=== PATIENT | male | born 1950 | race Caucasian/White ===

== ENCOUNTER 2019-07-10 12:19 | Day surgery (SDC) | payer OTHER ==
[~2019-07-10] VITALS: Ht 170.2 cm; Wt 115.5 kg
[~2019-07-10 12:19] MED LIST: ALBU90OI INH; Arthritis Pain650 M1 PO; Aspirin EC81 MG PO; B-121000 MC2 PO; ENBREL MIN50 MG/1 ML SC; IBU600 MG PO; IBUPROFEN; LOSA50 PO; METO50ER PO; METTREX2.5; OMEPRAZOLE20 MG PO; OXYACE5T PO; Oxybutynin Chlo10 MG PO; PRED10 PO; PREG300 PO; SILD50TA PO; STIOLTO RESPIMAT4 GM INH; Simvastatin10 MG PO; TAMS.4ER PO; VICODIN; VITAMIN D34000 UNIT PO; [UNRECOGNIZED DRUG - REMARK]
--- NOTE | 2019-07-10 14:02 | NUR ---
07/10/19 1402 Meg Sadler BOTH SURGEON & ANESTHESIOLOGIST NOTIFIED OF PATIENT'S NPO STATUS; PT LAST DRINK OF WATER WAS APPROX 1230.
== END 2019-07-10 15:16 | disposition home or self-care (01) ==
LOC: ORSCSDS 12:19
PROVIDERS: Internal Medicine Gastroenterology
PROC: 0DBP8ZX Excision of Rectum, Via Natural or Artificial Opening Endoscopic, Diagnostic (ICD-10-PCS; principal; 2019-07-10 14:00)
PROC: 0DB58ZX Excision of Esophagus, Via Natural or Artificial Opening Endoscopic, Diagnostic (ICD-10-PCS; principal; 2019-07-10 14:00)
PROC: 0DBN8ZX Excision of Sigmoid Colon, Via Natural or Artificial Opening Endoscopic, Diagnostic (ICD-10-PCS; principal; 2019-07-10 14:00)
PROC: 0DB68ZX Excision of Stomach, Via Natural or Artificial Opening Endoscopic, Diagnostic (ICD-10-PCS; principal; 2019-07-10 14:00)
PROC: 0DBK8ZX Excision of Ascending Colon, Via Natural or Artificial Opening Endoscopic, Diagnostic (ICD-10-PCS; principal; 2019-07-10 14:00)
DX: Z12.11 Encounter for screening for malignant neoplasm of colon (principal); Z86.010 Personal history of colon polyps; K57.30 Diverticulosis of large intestine without perforation or abscess without bleeding; K22.70 Barrett's esophagus without dysplasia; Z80.0 Family history of malignant neoplasm of digestive organs; D12.2 Benign neoplasm of ascending colon; D12.5 Benign neoplasm of sigmoid colon; D12.8 Benign neoplasm of rectum; E66.01 Morbid (severe) obesity due to excess calories; Z68.41 Body mass index [BMI] 40.0-44.9, adult; Z87.891 Personal history of nicotine dependence; Z79.899 Other long term (current) drug therapy
CPT/HCPCS: 87081; 88305; 88342; J2250; J2704; J7120

== ENCOUNTER 2020-05-10 09:53 | Inpatient (IN) | payer OTHER ==
[~2020-05-10] VITALS: Ht 172.7 cm; Wt 120.0 kg
[~2020-05-10 09:53] MED LIST changes: -B-121000 MC2 PO; +B-121000 MC3 PO; +VITAMIN D31000 UNI1 PO; -VITAMIN D34000 UNIT PO
[2020-05-10 11:13] LABS: PO2 Arterial 60.9 mmHg (80-100); pH Blood Arterial 7.44 (7.35-7.45)
[2020-05-10 11:16] LABS: Troponin I 0.019 ng/mL (0.000-0.040)
[2020-05-10 11:17] LABS: Alanine Aminotransfer (ALT/SGP 28 U/L (12-78); Albumin, Blood 3.6 g/dL (3.4-5.0); Alk Phos 63 U/L (50-136); Anion Gap 5 mmol/L (6-16); Aspartate Aminotrans (AST/SGOT 54 U/L (12-37); Bilirubin, Total 0.9 mg/dL (0.1-1.0); Blood Urea Nitrogen 18 mg/dL (8-24); Bun/Creatinine Ratio 18.3 (12.0-20.0); CO2, Blood 29 mmol/L (21-32); Calcium, Blood 8.2 mg/dL (8.5-10.1); Chloride, Blood 103 mmol/L (98-108); Creatinine, Blood 0.99 mg/dL (0.60-1.20); Globulin, Blood 3.5 g/dL (2.2-4.0); Glomerular Filtration Rate >60 (60-); Glucose, Blood 108 mg/dL (70-99); Potassium, Blood 4.7 mmol/L (3.5-5.5); Sodium, Blood 137 mmol/L (136-145); Total Protein, Blood 7.1 g/dL (6.4-8.2)
[2020-05-10 11:36] LABS: BASOPHILS ABSOLUTE AUTO 0.03 K/mm3 (0.00-0.23); BASOPHILS PERCENT AUTO 0 % (0-2); EOSINOPHILS ABSOLUTE AUTO 0.04 K/mm3 (0.00-0.68); EOSINOPHILS PERCENT AUTO 0 % (0-6); Hemoglobin 14.7 g/dL (13.5-17.5); IMMATURE GRAN ABSOLUTE AUTO 0.03 K/mm3 (0.00-0.10); IMMATURE GRAN PERCENT AUTO 0 % (0-1); LYMPHOCYTES ABSOLUTE AUTO 0.76 K/mm3 (0.84-5.20); LYMPHOCYTES PERCENT AUTO 7 % (21-46); MONOCYTES ABSOLUTE AUTO 1.13 K/mm3 (0.16-1.47); MONOCYTES PERCENT AUTO 10 % (4-13); Mean Corpuscular HGB 30.7 pg (26.0-34.0); Mean Corpuscular HGB Conc 32.7 g/dL (31.5-36.5); Mean Corpuscular Volume 94 fL (80-100); Mean Platelet Volume 11.3 fL (9.1-12.4); NEUTROPHILS ABSOLUTE AUTO 9.78 K/mm3 (1.96-9.15); NEUTROPHILS PERCENT AUTO 83 % (41-73); Platelet Count 157 K/mm3 (150-400); RDW Coefficient Variation 13.9 % (11.7-14.2); RDW Standard Deviation 48.7 fL (35.1-46.3); Red Blood Cell Count 4.79 M/mm3 (4.30-5.90); White Blood Cell Count 11.77 K/mm3 (4.00-11.30)
[2020-05-10] MEDS ORDERED: AMIT10 PO (13:01)
[2020-05-10] MEDS ORDERED: TRELEGY ELLIPT1 EACH INH (13:01)
[2020-05-10] MEDS ORDERED: HUMIRA40 MG/0.2 SC (13:02)
[2020-05-10] MEDS ORDERED: POTCHL20ER PO (13:02)
[2020-05-10] MEDS ORDERED: FURO40 PO (13:03)
--- NOTE | 2020-05-10 17:22 | NUR ---
PT PLEASANT SINCE ADMIT. A/O. DENIES PAIN. RUNNING 2ND OF 2 BOLUS' DUE. PT IS QUITE TALKATIVE. LUNGS WHEEZY T/O. ON 2L O2 AND RESP EASY UNLABORED. 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 NO NEW CONCERNS AT THIS TIME. BED IN LOW POSITION, CALL LITGE IN REACH, CALLS APPROP
--- NOTE | 2020-05-11 02:25 | NUR ---
PT VOICED WANTING HARESH HOSE REMOVED, NURSE EXPLAINED THE REASON FOR THE HARESH HOSE, BUT STILL WANTED THEM OFF. TEDS REMOVED AT THIS TIME. PT WAS ENCOURAGED TO HAVE THEM REAPPLIED LATER. CALL LIGHT IN REACH.
--- NOTE | 2020-05-11 03:07 | NUR ---
SHIFT SUMMARY HAS BEEN RESTING QUIETLY WITH FEW INTERRUPTIONS THIS SHIFT. VS TAKEN EARLIER, O2 SATS IN 80'S, O2 PER NC INCREASED TO 4L/MIN, EFFECIVE, SATS REMAIN IN THE 90'S. HOB ELEVATED FOR COMFORT. INSISTED THAT HIS HARESH HOSE BE REMOVED EARLIER, EVEN THOUGH HE WAS INFORMED THEIR RATIONALE. WILL ENCOURAGE THEIR REAPPLIANCE LATER. NO NOTED ACUTE DISTRESS OTHERWISE. CALL LIGHT IN REACH
[2020-05-11 05:05] LABS: BASOPHILS ABSOLUTE AUTO 0.03 K/mm3 (0.00-0.23); BASOPHILS PERCENT AUTO 0 % (0-2); EOSINOPHILS PERCENT AUTO 0 % (0-6); Hematocrit 42.5 % (37.0-53.0); Hemoglobin 13.6 g/dL (13.5-17.5); IMMATURE GRAN ABSOLUTE AUTO 0.15 K/mm3 (0.00-0.10); IMMATURE GRAN PERCENT AUTO 1 % (0-1); LYMPHOCYTES ABSOLUTE AUTO 0.71 K/mm3 (0.84-5.20); LYMPHOCYTES PERCENT AUTO 4 % (21-46); MONOCYTES ABSOLUTE AUTO 0.63 K/mm3 (0.16-1.47); MONOCYTES PERCENT AUTO 4 % (4-13); Mean Corpuscular HGB 30.5 pg (26.0-34.0); Mean Corpuscular Volume 95 fL (80-100); Mean Platelet Volume 11.5 fL (9.1-12.4); NEUTROPHILS ABSOLUTE AUTO 14.71 K/mm3 (1.96-9.15); NEUTROPHILS PERCENT AUTO 91 % (41-73); Platelet Count 158 K/mm3 (150-400); RDW Coefficient Variation 14.6 % (11.7-14.2); RDW Standard Deviation 51.4 fL (35.1-46.3); Red Blood Cell Count 4.46 M/mm3 (4.30-5.90); White Blood Cell Count 16.23 K/mm3 (4.00-11.30)
[2020-05-11 05:23] LABS: Anion Gap 5 mmol/L (6-16); Blood Urea Nitrogen 19 mg/dL (8-24); Bun/Creatinine Ratio 19.2 (12.0-20.0); CO2, Blood 29 mmol/L (21-32); Calcium, Blood 8.7 mg/dL (8.5-10.1); Chloride, Blood 107 mmol/L (98-108); Creatinine, Blood 0.99 mg/dL (0.60-1.20); Glomerular Filtration Rate >60 (60-); Glucose, Blood 195 mg/dL (70-99); Potassium, Blood 3.9 mmol/L (3.5-5.5); Sodium, Blood 141 mmol/L (136-145)
--- NOTE | 2020-05-11 17:37 | NUR ---
SHIFT SUMMARY DECLINED OUT OF BED TO CHAIR AND PERSONAL CARE, SHOWER AND ORAL CARE OFFERED. REFUSED TO WEAR TEDS. DANGLED AT LUNCH.
--- NOTE | 2020-05-12 03:33 | NUR ---
SHIFT SUMMARY HAS BEEN RESTING QUIETLY WITH FEW INTERRUPTIONS SINCE HS. RESPS DIMINISHED, BUT LESS CONGESTED THAN NOTED 24 HR AGO. O2 PER NC. UP TO BATHROOM AD TOLU, VOICED ANNOYANCE RE DEVICES AND SUGGESTIONS FOR SAFETY DUE TO HIS POSSIBLE FALL RISK IF HE GETS SOB. CALL LIGHT IN REACH. NO NOTED ACUTE DISTRESS AT THIS TIME.
--- NOTE | 2020-05-12 23:56 | NUR ---
HAS BEEN UP IN CHAIR WATCHING TV, NO NOTED DISTRESS, BREATRH SOUNDS ALTHOUGH DIMINISHED, ARE LESS CONGESTED THAN NOTED 24 HR AGO PER AUSCULTATION. CALL LIGHT IN REACH
--- NOTE | 2020-05-13 03:00 | NUR ---
SHIFT SUMMARY HAS BEEN RESTING QUIETLY WITH FEW INTERRUPTIONS THIS SHIFT. CALL LIGHT IN REACH.
[2020-05-13 04:48] LABS: Base Excess Venous 7.1 mmol/L; Bicarbonate Venous 30.2 mmol/L (24.0-30.0); PCO2 Venous 42.5 mmHg (38-42); PO2 Venous 118 mmHg (38-42); pH Blood Venous 7.47 (7.34-7.37)
[2020-05-13 05:26] LABS: BASOPHILS ABSOLUTE AUTO 0.03 K/mm3 (0.00-0.23); BASOPHILS PERCENT AUTO 0 % (0-2); EOSINOPHILS PERCENT AUTO 0 % (0-6); Hematocrit 42.6 % (37.0-53.0); Hemoglobin 13.4 g/dL (13.5-17.5); IMMATURE GRAN ABSOLUTE AUTO 0.24 K/mm3 (0.00-0.10); IMMATURE GRAN PERCENT AUTO 2 % (0-1); LYMPHOCYTES ABSOLUTE AUTO 1.24 K/mm3 (0.84-5.20); LYMPHOCYTES PERCENT AUTO 8 % (21-46); MONOCYTES ABSOLUTE AUTO 0.94 K/mm3 (0.16-1.47); MONOCYTES PERCENT AUTO 6 % (4-13); Mean Corpuscular HGB 30.7 pg (26.0-34.0); Mean Corpuscular HGB Conc 31.5 g/dL (31.5-36.5); Mean Corpuscular Volume 98 fL (80-100); Mean Platelet Volume 11.7 fL (9.1-12.4); NEUTROPHILS ABSOLUTE AUTO 12.91 K/mm3 (1.96-9.15); NEUTROPHILS PERCENT AUTO 84 % (41-73); Platelet Count 196 K/mm3 (150-400); RDW Coefficient Variation 15.1 % (11.7-14.2); RDW Standard Deviation 54.6 fL (35.1-46.3); Red Blood Cell Count 4.37 M/mm3 (4.30-5.90); White Blood Cell Count 15.36 K/mm3 (4.00-11.30)
[2020-05-13 05:38] LABS: Anion Gap 4 mmol/L (6-16); Blood Urea Nitrogen 25 mg/dL (8-24); Bun/Creatinine Ratio 26.1 (12.0-20.0); CO2, Blood 30 mmol/L (21-32); Calcium, Blood 8.8 mg/dL (8.5-10.1); Chloride, Blood 107 mmol/L (98-108); Creatinine, Blood 0.96 mg/dL (0.60-1.20); Glomerular Filtration Rate >60 (60-); Glucose, Blood 148 mg/dL (70-99); Potassium, Blood 4.7 mmol/L (3.5-5.5); Sodium, Blood 141 mmol/L (136-145)
--- NOTE | 2020-05-13 16:33 | NUR ---
NO ACUTE CHANGES T/O SHIFT, A&OX4. PT IS CURRENTLY ON 2 L/MIN 02 VIA NC WITH WHEEZING NOTED IN THE LUNGS. RT TRIED WINGING PT OFF OF O2 BECAUSE PT IS ROOM AIR AT BASELINE. PT DROPPED TO 89% SATURATION AND WAS PLACED BACK ON 2 L/MIN O2. POSSIBLE DISCHARGE TOMORROW.
--- NOTE | 2020-05-13 17:29 | NUR ---
DISCUSSED WITH LACEY THE PT'S SLIGHTLY ELEVATED BP LEVEL, STATED HE IS NOT TOO CONCERNED CURRENTLY AND HE WILL TAKE A LOOK AT HOW IT IS DOING TOMORROW.
--- NOTE | 2020-05-14 05:29 | NUR ---
SHIFT SUMMARY NO ACUTE CHANGES THIS SHIFT. PT IS A&O X4, IND IN ROOM, CALLS APPROPRIATELY. PT STATES HE IS EXCITED TO POSSBILY BE GOING HOME TODAY. NO COMPLAINTS OF ANY KIND. PT IS LAYING IN BED WITH EYES CLOSED, EVEN AND UNLABORED RESPIRATIONS. BED IN LOWERED POSITION WITH HOB ELEVATED. CALL LIGHT AND PERSONAL ITEMS WITHIN REACH. NO APPARENT NEEDS OR DISTRESS AT THIS TIME, WILL CONTINUE TO MONITOR UNTIL REPORT GIVEN TO DAY RN.
[2020-05-14] MEDS ORDERED: GUAI600T33 PO (11:45)
[2020-05-14] MEDS ORDERED: CEFU500T30 PO (11:49)
[2020-05-14] MEDS ORDERED: PRED20 PO (11:52)
[2020-05-14] MEDS ORDERED: PROBIOTIC PO (11:55)
--- NOTE | 2020-05-14 13:12 | NUR ---
PT DC'D @ APPROX 1300 TODAY BY EVLEIN WITH NURSE. PT WAS PICKED UO BY FRIENDS. BELONGINGS AND DC PAPERS WITH PT. IV REMOVED AND WNL WITH NO SIGN OF INFECTION OR ABNORMALITIES.
== END 2020-05-14 12:58 | disposition home or self-care (01) | DRG 193 ==
LOC: ER 09:53 → ERHOLD 13:17 → MEDS 13:17
PROVIDERS: Emergency Medicine; Internal Medicine; Nurse Practitioner Acute Care; ADMIT Internal Medicine
DX: J18.9 Pneumonia, unspecified organism (principal); J96.01 Acute respiratory failure with hypoxia; J96.02 Acute respiratory failure with hypercapnia; I50.32 Chronic diastolic (congestive) heart failure; J44.1 Chronic obstructive pulmonary disease with (acute) exacerbation; J44.0 Chronic obstructive pulmonary disease with (acute) lower respiratory infection; Z68.41 Body mass index [BMI] 40.0-44.9, adult; Z20.828 Contact with and (suspected) exposure to other viral communicable diseases; I11.0 Hypertensive heart disease with heart failure; E66.01 Morbid (severe) obesity due to excess calories; K21.9 Gastro-esophageal reflux disease without esophagitis; M06.9 Rheumatoid arthritis, unspecified; N40.0 Benign prostatic hyperplasia without lower urinary tract symptoms; F10.10 Alcohol abuse, uncomplicated; F32.9 Major depressive disorder, single episode, unspecified; G47.30 Sleep apnea, unspecified; E78.5 Hyperlipidemia, unspecified; Z87.891 Personal history of nicotine dependence
CPT/HCPCS: 36415; 36600; 71045; 80048; 80053; 82803; 83605; 83735; 83880; 84145; 84484; 85025; 87040; 87070; 87077; 87186; 87205; 93005; 93010; 94640; 94664; 94667; 94760; 96374; 98960; 99285-25; A9270; A9270-GY; J0696; J1650; J1956; J2930; J7030; J7512; Q2038; U0003

== ENCOUNTER → 2020-09-03 | Outpatient (CLI) | payer OTHER ==
[~2020-09-03] MED LIST changes: +AMIT10 PO; +CEFU500T30 PO; +FURO40 PO; +GUAI600T33 PO; +HUMIRA40 MG/0.2 SC; +POTCHL20ER PO; +PRED20 PO; +PROBIOTIC PO; +TRELEGY ELLIPT1 EACH INH
[2020-09-03 20:04] LABS: BASOPHILS ABSOLUTE AUTO 0.06 K/mm3 (0.00-0.23); BASOPHILS PERCENT AUTO 1 % (0-2); EOSINOPHILS ABSOLUTE AUTO 0.22 K/mm3 (0.00-0.68); EOSINOPHILS PERCENT AUTO 3 % (0-6); Hemoglobin 15.2 g/dL (13.5-17.5); IMMATURE GRAN ABSOLUTE AUTO 0.02 K/mm3 (0.00-0.10); IMMATURE GRAN PERCENT AUTO 0 % (0-1); LYMPHOCYTES ABSOLUTE AUTO 2.73 K/mm3 (0.84-5.20); LYMPHOCYTES PERCENT AUTO 42 % (21-46); MONOCYTES ABSOLUTE AUTO 0.74 K/mm3 (0.16-1.47); MONOCYTES PERCENT AUTO 11 % (4-13); Mean Corpuscular HGB 30.4 pg (26.0-34.0); Mean Corpuscular HGB Conc 32.3 g/dL (31.5-36.5); Mean Corpuscular Volume 94 fL (80-100); NEUTROPHILS ABSOLUTE AUTO 2.73 K/mm3 (1.96-9.15); NEUTROPHILS PERCENT AUTO 42 % (41-73); Platelet Count 188 K/mm3 (150-400); RDW Coefficient Variation 15.7 % (11.7-14.2); RDW Standard Deviation 53.5 fL (35.1-46.3)
[2020-09-03 20:22] LABS: Alanine Aminotransfer (ALT/SGP 28 U/L (12-78); Albumin, Blood 3.8 g/dL (3.4-5.0); Albumin/Globulin Ratio 1.1 (0.8-1.8); Alk Phos 66 U/L (50-136); Anion Gap 3 mmol/L (6-16); Aspartate Aminotrans (AST/SGOT 30 U/L (12-37); Bilirubin, Total 0.5 mg/dL (0.1-1.0); Blood Urea Nitrogen 18 mg/dL (8-24); Bun/Creatinine Ratio 19.4 (12.0-20.0); CHOL/HDL RATIO 3.6; CO2, Blood 32 mmol/L (21-32); Calcium, Blood 8.8 mg/dL (8.5-10.1); Chloride, Blood 105 mmol/L (98-108); Cholesterol 134 mg/dL (50-200); Creatinine, Blood 0.93 mg/dL (0.60-1.20); Globulin, Blood 3.4 g/dL (2.2-4.0); Glomerular Filtration Rate >60 (60-); Glucose, Blood 118 mg/dL (70-99); HDL Cholesterol 37 mg/dL (>39); LDL/HDL RATIO 0.7; Low Density Lipoprotein Chol 26 mg/dL (0-110); Potassium, Blood 3.8 mmol/L (3.5-5.5); Sodium, Blood 140 mmol/L (136-145); Total Protein, Blood 7.2 g/dL (6.4-8.2); Triglycerides 357 mg/dL (30-160); Very Low Density Lipoprot Chol 71 mg/dL (6-32)
== END | disposition home or self-care (01) ==
LOC: LAB SHORT 09:50 → PLD 09:50
PROVIDERS: Nurse Practitioner Family
DX: E78.5 Hyperlipidemia, unspecified (principal); I50.9 Heart failure, unspecified
CPT/HCPCS: 80053; 80061; 85025

== ENCOUNTER → 2020-11-19 | Outpatient (CLI) | payer OTHER ==
[2020-11-19 18:01] LABS: BASOPHILS ABSOLUTE AUTO 0.04 K/mm3 (0.00-0.23); BASOPHILS PERCENT AUTO 1 % (0-2); EOSINOPHILS ABSOLUTE AUTO 0.07 K/mm3 (0.00-0.68); EOSINOPHILS PERCENT AUTO 1 % (0-6); Hematocrit 43.5 % (37.0-53.0); Hemoglobin 14.4 g/dL (13.5-17.5); IMMATURE GRAN ABSOLUTE AUTO 0.06 K/mm3 (0.00-0.10); IMMATURE GRAN PERCENT AUTO 1 % (0-1); LYMPHOCYTES ABSOLUTE AUTO 2.53 K/mm3 (0.84-5.20); LYMPHOCYTES PERCENT AUTO 32 % (21-46); MONOCYTES ABSOLUTE AUTO 0.87 K/mm3 (0.16-1.47); MONOCYTES PERCENT AUTO 11 % (4-13); Mean Corpuscular HGB 32.1 pg (26.0-34.0); Mean Corpuscular HGB Conc 33.1 g/dL (31.5-36.5); Mean Corpuscular Volume 97 fL (80-100); Mean Platelet Volume 12.6 fL (9.1-12.4); NEUTROPHILS ABSOLUTE AUTO 4.38 K/mm3 (1.96-9.15); NEUTROPHILS PERCENT AUTO 55 % (41-73); Platelet Count 153 K/mm3 (150-400); RDW Coefficient Variation 15.6 % (11.7-14.2); RDW Standard Deviation 55.2 fL (35.1-46.3); Red Blood Cell Count 4.49 M/mm3 (4.30-5.90); White Blood Cell Count 7.95 K/mm3 (4.00-11.30)
[2020-11-19 18:07] LABS: Alanine Aminotransfer (ALT/SGP 43 U/L (12-78); Albumin, Blood 3.9 g/dL (3.4-5.0); Albumin/Globulin Ratio 1.2 (0.8-1.8); Alk Phos 41 U/L (50-136); Anion Gap 2 mmol/L (6-16); Aspartate Aminotrans (AST/SGOT 67 U/L (12-37); Bilirubin, Total 0.7 mg/dL (0.1-1.0); Blood Urea Nitrogen 16 mg/dL (8-24); Bun/Creatinine Ratio 14.4 (12.0-20.0); CHOL/HDL RATIO 3.9; CO2, Blood 30 mmol/L (21-32); Calcium, Blood 8.7 mg/dL (8.5-10.1); Chloride, Blood 107 mmol/L (98-108); Cholesterol 168 mg/dL (50-200); Creatinine, Blood 1.11 mg/dL (0.60-1.20); Globulin, Blood 3.3 g/dL (2.2-4.0); Glomerular Filtration Rate >60 (60-); Glucose, Blood 98 mg/dL (70-99); HDL Cholesterol 43 mg/dL (>39); LDL/HDL RATIO 1.4; Low Density Lipoprotein Chol 61 mg/dL (0-110); Sodium, Blood 139 mmol/L (136-145); Total Protein, Blood 7.2 g/dL (6.4-8.2); Triglycerides 319 mg/dL (30-160); Very Low Density Lipoprot Chol 63 mg/dL (6-32)
== END | disposition home or self-care (01) ==
LOC: LAB 16:18 → LAB SHORT 16:18
PROVIDERS: Nurse Practitioner Family
DX: E78.5 Hyperlipidemia, unspecified (principal)
CPT/HCPCS: 80053; 80061; 85025

== ENCOUNTER → 2020-12-03 | Outpatient (CLI) | payer OTHER | LOC: LAB SHORT 16:33 → LAB 16:33 | DX: K14.1 Geographic tongue (principal); D51.9 Vitamin B12 deficiency anemia, unspecified | CPT/HCPCS: 82607 ==

== ENCOUNTER → 2021-02-05 | Outpatient (CLI) | payer OTHER ==
[2021-02-05 19:24] LABS: BASOPHILS ABSOLUTE AUTO 0.04 K/mm3 (0.00-0.23); BASOPHILS PERCENT AUTO 1 % (0-2); EOSINOPHILS ABSOLUTE AUTO 0.08 K/mm3 (0.00-0.68); EOSINOPHILS PERCENT AUTO 1 % (0-6); Hematocrit 45.4 % (37.0-53.0); Hemoglobin 14.7 g/dL (13.5-17.5); IMMATURE GRAN ABSOLUTE AUTO 0.03 K/mm3 (0.00-0.10); IMMATURE GRAN PERCENT AUTO 0 % (0-1); LYMPHOCYTES ABSOLUTE AUTO 2.22 K/mm3 (0.84-5.20); LYMPHOCYTES PERCENT AUTO 32 % (21-46); MONOCYTES ABSOLUTE AUTO 0.72 K/mm3 (0.16-1.47); MONOCYTES PERCENT AUTO 11 % (4-13); Mean Corpuscular HGB 32.8 pg (26.0-34.0); Mean Corpuscular HGB Conc 32.4 g/dL (31.5-36.5); Mean Corpuscular Volume 101 fL (80-100); NEUTROPHILS ABSOLUTE AUTO 3.78 K/mm3 (1.96-9.15); NEUTROPHILS PERCENT AUTO 55 % (41-73); Platelet Count 224 K/mm3 (150-400); RDW Coefficient Variation 13.4 % (11.7-14.2); RDW Standard Deviation 50.5 fL (35.1-46.3); Red Blood Cell Count 4.48 M/mm3 (4.30-5.90); White Blood Cell Count 6.87 K/mm3 (4.00-11.30)
[2021-02-05 19:34] LABS: Albumin, Blood 4.1 g/dL (3.4-5.0); Albumin/Globulin Ratio 1.2 (0.8-1.8); Bilirubin, Total 0.5 mg/dL (0.1-1.0); Calcium, Blood 9.1 mg/dL (8.5-10.1); Creatinine, Blood 1.7 mg/dL (0.60-1.20); Globulin, Blood 3.5 g/dL (2.2-4.0); Potassium, Blood 4.2 mmol/L (3.5-5.5); Total Protein, Blood 7.6 g/dL (6.4-8.2)
== END | disposition home or self-care (01) ==
LOC: LAB SHORT 16:45 → LAB 16:45
PROVIDERS: Internal Medicine Rheumatology
DX: M06.9 Rheumatoid arthritis, unspecified (principal)
CPT/HCPCS: 80053; 85025; 85651

== ENCOUNTER → 2021-02-16 | Outpatient (CLI) | payer OTHER | END | disposition home or self-care (01) | LOC: LAB SHORT 13:00 | DX: K12.0 Recurrent oral aphthae (principal) | CPT/HCPCS: 87070; 87205 ==

== ENCOUNTER → 2022-05-10 | Outpatient (CLI) | payer OTHER ==
[~2022-05-10] MED LIST changes: +LEVO750 PO; +Prednisone50 MG PO
[2022-05-10 18:50] LABS: Albumin, Blood 3.7 g/dL (3.4-5.0); Albumin/Globulin Ratio 1.2 (0.8-1.8); Bun/Creatinine Ratio 15.4 (12.0-20.0); Calcium, Blood 9.2 mg/dL (8.5-10.1); Creatinine, Blood 1.23 mg/dL (0.60-1.20); Globulin, Blood 3.2 g/dL (2.2-4.0); Potassium, Blood 4.2 mmol/L (3.5-5.5); Total Protein, Blood 6.9 g/dL (6.4-8.2)
[2022-05-10 18:54] LABS: Mean Corpuscular HGB 29.1 pg (26.0-34.0); Mean Corpuscular HGB Conc 32.4 g/dL (31.5-36.5); Mean Corpuscular Volume 90 fL (80-100); Platelet Count 242 K/mm3 (150-400); RDW Coefficient Variation 14.6 % (11.7-14.2); RDW Standard Deviation 47.8 fL (35.1-46.3); Red Blood Cell Count 6.19 M/mm3 (4.30-5.90); White Blood Cell Count 7.93 K/mm3 (4.00-11.30)
[2022-05-10 19:26] LABS: Hematocrit 55.5 % (37.0-53.0)
[2022-05-10 20:40] LABS: BAND PERCENT MAN 2 % (0-8); BASOPHILS PERCENT MAN 0 % (0-2); EOSINOPHILS ABSOLUTE MAN 0.23 K/mm3 (0.00-0.68); EOSINOPHILS PERCENT MAN 3 % (0-6); LYMPHOCYTES % ATYPICAL MANUAL 7 % (0-0); LYMPHOCYTES ABSOLUTE MAN 2.22 K/mm3 (0.84-5.20); LYMPHOCYTES PERCENT MAN 21 % (21-46); MONOCYTES ABSOLUTE MAN 1.18 K/mm3 (0.16-1.47); MONOCYTES PERCENT MAN 15 % (4-13); NEUTROPHILS ABSOLUTE MAN 4.28 K/mm3 (1.96-9.15); SEG NEUTROPHILS PERCENT MAN 52 % (41-73); TOTAL CELLS COUNTED 100
== END | disposition home or self-care (01) ==
LOC: LAB 17:53 → LAB SHORT 17:53
PROVIDERS: Nurse Practitioner
DX: E86.1 Hypovolemia (principal); I95.89 Other hypotension; T50.2X5A Adverse effect of carbonic-anhydrase inhibitors, benzothiadiazides and other diuretics, initial encounter; Z86.79 Personal history of other diseases of the circulatory system
CPT/HCPCS: 80053; 84100; 85007; 85027

== ENCOUNTER 2022-07-06 06:02 | Day surgery (SDC) | payer OTHER ==
[~2022-07-06] VITALS: Wt 113.6 kg
[2022-07-06] MEDS ORDERED: NORCO PO (15:08)
[2022-07-06] MEDS ORDERED: Methocarbamol750 MG PO (15:09)
== END 2022-07-06 15:51 | disposition home or self-care (01) ==
LOC: ATC 06:02
DX: M06.9 Rheumatoid arthritis, unspecified (principal); Z88.0 Allergy status to penicillin; R21 Rash and other nonspecific skin eruption; N18.30 Chronic kidney disease, stage 3 unspecified; I25.10 Atherosclerotic heart disease of native coronary artery without angina pectoris; I50.9 Heart failure, unspecified; I13.0 Hypertensive heart and chronic kidney disease with heart failure and stage 1 through stage 4 chronic kidney disease, or unspecified chronic kidney disease
CPT/HCPCS: 96365; A9270; J0129-JA

== ENCOUNTER 2022-07-20 00:30 | Day surgery (SDC) | payer OTHER ==
[~2022-07-20 00:30] MED LIST changes: +Methocarbamol750 MG PO; +NORCO PO
== END 2022-07-20 15:08 | disposition home or self-care (01) ==
LOC: ATC 00:30
DX: M06.9 Rheumatoid arthritis, unspecified (principal); R21 Rash and other nonspecific skin eruption
CPT/HCPCS: 96365; A9270; J0129-JA

== ENCOUNTER 2022-08-03 01:11 | Day surgery (SDC) | payer OTHER | END 2022-08-03 15:35 | disposition home or self-care (01) | LOC: ATC 01:11 | DX: M06.9 Rheumatoid arthritis, unspecified (principal); R21 Rash and other nonspecific skin eruption | CPT/HCPCS: 96365; J0129-JA ==

== ENCOUNTER 2022-08-25 11:51 | Day surgery (SDC) | payer OTHER ==
[2022-08-25 14:18] LABS: BASOPHILS ABSOLUTE AUTO 0.05 K/mm3 (0.00-0.23); BASOPHILS PERCENT AUTO 1 % (0-2); EOSINOPHILS ABSOLUTE AUTO 0.19 K/mm3 (0.00-0.68); EOSINOPHILS PERCENT AUTO 2 % (0-6); Hematocrit 47.4 % (37.0-53.0); Hemoglobin 15.9 g/dL (13.5-17.5); IMMATURE GRAN ABSOLUTE AUTO 0.05 K/mm3 (0.00-0.10); IMMATURE GRAN PERCENT AUTO 1 % (0-1); LYMPHOCYTES ABSOLUTE AUTO 1.95 K/mm3 (0.84-5.20); LYMPHOCYTES PERCENT AUTO 19 % (21-46); MONOCYTES ABSOLUTE AUTO 0.72 K/mm3 (0.16-1.47); MONOCYTES PERCENT AUTO 7 % (4-13); Mean Corpuscular HGB 30.9 pg (26.0-34.0); Mean Corpuscular HGB Conc 33.5 g/dL (31.5-36.5); Mean Corpuscular Volume 92 fL (80-100); Mean Platelet Volume 11.6 fL (9.1-12.4); NEUTROPHILS ABSOLUTE AUTO 7.59 K/mm3 (1.96-9.15); NEUTROPHILS PERCENT AUTO 72 % (41-73); Platelet Count 227 K/mm3 (150-400); RDW Coefficient Variation 15.4 % (11.7-14.2); RDW Standard Deviation 52.5 fL (35.1-46.3); Red Blood Cell Count 5.14 M/mm3 (4.30-5.90); White Blood Cell Count 10.55 K/mm3 (4.00-11.30)
[2022-08-25 14:37] LABS: Albumin, Blood 3.6 g/dL (3.4-5.0); Albumin/Globulin Ratio 0.9 (0.8-1.8); Bilirubin, Total 0.8 mg/dL (0.1-1.0); Bun/Creatinine Ratio 19.2 (12.0-20.0); Calcium, Blood 8.9 mg/dL (8.5-10.1); Creatinine, Blood 0.89 mg/dL (0.60-1.20); Globulin, Blood 4.1 g/dL (2.2-4.0); Potassium, Blood 4.2 mmol/L (3.5-5.5); Total Protein, Blood 7.7 g/dL (6.4-8.2)
== END 2022-08-25 16:48 | disposition home or self-care (01) ==
LOC: ATC 11:51
PROVIDERS: Internal Medicine Rheumatology
DX: M06.9 Rheumatoid arthritis, unspecified (principal); E78.5 Hyperlipidemia, unspecified; I13.0 Hypertensive heart and chronic kidney disease with heart failure and stage 1 through stage 4 chronic kidney disease, or unspecified chronic kidney disease; I50.9 Heart failure, unspecified; N18.30 Chronic kidney disease, stage 3 unspecified; J44.9 Chronic obstructive pulmonary disease, unspecified; I25.10 Atherosclerotic heart disease of native coronary artery without angina pectoris; Z87.891 Personal history of nicotine dependence
CPT/HCPCS: 80053; 85025; 85651; 96413; 96415; A9270; J7050; Q5103

== ENCOUNTER 2022-09-08 02:01 | Day surgery (SDC) | payer OTHER ==
[2022-09-08 14:12] LABS: BASOPHILS ABSOLUTE AUTO 0.05 K/mm3 (0.00-0.23); BASOPHILS PERCENT AUTO 1 % (0-2); EOSINOPHILS ABSOLUTE AUTO 0.17 K/mm3 (0.00-0.68); EOSINOPHILS PERCENT AUTO 2 % (0-6); Hematocrit 44.8 % (37.0-53.0); Hemoglobin 15.3 g/dL (13.5-17.5); IMMATURE GRAN ABSOLUTE AUTO 0.03 K/mm3 (0.00-0.10); IMMATURE GRAN PERCENT AUTO 0 % (0-1); LYMPHOCYTES ABSOLUTE AUTO 1.99 K/mm3 (0.84-5.20); LYMPHOCYTES PERCENT AUTO 23 % (21-46); MONOCYTES ABSOLUTE AUTO 0.65 K/mm3 (0.16-1.47); MONOCYTES PERCENT AUTO 8 % (4-13); Mean Corpuscular HGB 31.8 pg (26.0-34.0); Mean Corpuscular HGB Conc 34.2 g/dL (31.5-36.5); Mean Corpuscular Volume 93 fL (80-100); Mean Platelet Volume 12.2 fL (9.1-12.4); NEUTROPHILS ABSOLUTE AUTO 5.75 K/mm3 (1.96-9.15); NEUTROPHILS PERCENT AUTO 67 % (41-73); Platelet Count 196 K/mm3 (150-400); RDW Coefficient Variation 14.2 % (11.7-14.2); RDW Standard Deviation 48.8 fL (35.1-46.3); Red Blood Cell Count 4.81 M/mm3 (4.30-5.90); White Blood Cell Count 8.64 K/mm3 (4.00-11.30)
[2022-09-08 14:21] LABS: Albumin, Blood 3.6 g/dL (3.4-5.0); Bilirubin, Total 0.6 mg/dL (0.1-1.0); Bun/Creatinine Ratio 22.1 (12.0-20.0); Calcium, Blood 9.2 mg/dL (8.5-10.1); Creatinine, Blood 0.95 mg/dL (0.60-1.20); Globulin, Blood 3.5 g/dL (2.2-4.0); Total Protein, Blood 7.1 g/dL (6.4-8.2)
== END 2022-09-08 15:54 | disposition home or self-care (01) ==
LOC: ATC 02:01
PROVIDERS: Internal Medicine Rheumatology
DX: M06.9 Rheumatoid arthritis, unspecified (principal); R21 Rash and other nonspecific skin eruption
CPT/HCPCS: 80053; 85025; 85651; 96413; 96415; A9270; J7050; Q5103

== ENCOUNTER 2022-09-19 13:31 | Day surgery (SDC) | payer OTHER ==
[~2022-09-19] VITALS: Ht 170.2 cm; Wt 114.6 kg
== END 2022-09-19 16:19 | disposition home or self-care (01) ==
LOC: ORSCSDS 13:31
PROVIDERS: Internal Medicine Gastroenterology
PROC: 0DB58ZX Excision of Esophagus, Via Natural or Artificial Opening Endoscopic, Diagnostic (ICD-10-PCS; principal; 2022-09-19 15:00)
PROC: 0DB68ZX Excision of Stomach, Via Natural or Artificial Opening Endoscopic, Diagnostic (ICD-10-PCS; principal; 2022-09-19 15:00)
PROC: 0DBN8ZX Excision of Sigmoid Colon, Via Natural or Artificial Opening Endoscopic, Diagnostic (ICD-10-PCS; principal; 2022-09-19 15:00)
PROC: 0DBH8ZX Excision of Cecum, Via Natural or Artificial Opening Endoscopic, Diagnostic (ICD-10-PCS; principal; 2022-09-19 15:00)
DX: K22.70 Barrett's esophagus without dysplasia (principal); Z12.11 Encounter for screening for malignant neoplasm of colon; Z80.0 Family history of malignant neoplasm of digestive organs; Z83.71 Family history of colonic polyps; Z86.010 Personal history of colon polyps; D12.0 Benign neoplasm of cecum; D12.5 Benign neoplasm of sigmoid colon; K57.30 Diverticulosis of large intestine without perforation or abscess without bleeding; K20.90 Esophagitis, unspecified without bleeding; K29.50 Unspecified chronic gastritis without bleeding; I10 Essential (primary) hypertension; F10.10 Alcohol abuse, uncomplicated; E78.5 Hyperlipidemia, unspecified; E66.01 Morbid (severe) obesity due to excess calories; Z68.41 Body mass index [BMI] 40.0-44.9, adult; Z87.891 Personal history of nicotine dependence; Z79.82 Long term (current) use of aspirin; Z79.899 Other long term (current) drug therapy
CPT/HCPCS: 88305; 88342; J0330; J0461; J2405; J2704; J7120; Q9968

== ENCOUNTER 2022-10-04 11:31 | Day surgery (SDC) | payer OTHER | END 2022-10-04 17:51 | disposition home or self-care (01) | LOC: ATC 11:31 | DX: M06.9 Rheumatoid arthritis, unspecified (principal); I11.0 Hypertensive heart disease with heart failure; I50.9 Heart failure, unspecified; J44.9 Chronic obstructive pulmonary disease, unspecified; E78.5 Hyperlipidemia, unspecified; I25.10 Atherosclerotic heart disease of native coronary artery without angina pectoris; Z87.891 Personal history of nicotine dependence; Z88.0 Allergy status to penicillin; Z79.899 Other long term (current) drug therapy; Z79.82 Long term (current) use of aspirin | CPT/HCPCS: 96413; 96415; A9270; J7050; Q5103 ==

== ENCOUNTER 2022-11-15 01:45 | Day surgery (SDC) | payer OTHER ==
[2022-11-15 13:56] VITALS: BP 98/63
[2022-11-15 14:11] LABS: BASOPHILS ABSOLUTE AUTO 0.04 K/mm3 (0.00-0.23); BASOPHILS PERCENT AUTO 1 % (0-2); EOSINOPHILS PERCENT AUTO 2 % (0-6); Hematocrit 45.5 % (37.0-53.0); Hemoglobin 15.3 g/dL (13.5-17.5); IMMATURE GRAN ABSOLUTE AUTO 0.02 K/mm3 (0.00-0.10); IMMATURE GRAN PERCENT AUTO 0 % (0-1); LYMPHOCYTES ABSOLUTE AUTO 1.67 K/mm3 (0.84-5.20); LYMPHOCYTES PERCENT AUTO 26 % (21-46); MONOCYTES PERCENT AUTO 8 % (4-13); Mean Corpuscular HGB 31.9 pg (26.0-34.0); Mean Corpuscular HGB Conc 33.6 g/dL (31.5-36.5); Mean Corpuscular Volume 95 fL (80-100); Mean Platelet Volume 12.3 fL (9.1-12.4); NEUTROPHILS ABSOLUTE AUTO 4.21 K/mm3 (1.96-9.15); NEUTROPHILS PERCENT AUTO 65 % (41-73); Platelet Count 157 K/mm3 (150-400); RDW Coefficient Variation 14.2 % (11.7-14.2); RDW Standard Deviation 49.1 fL (35.1-46.3); Red Blood Cell Count 4.79 M/mm3 (4.30-5.90); White Blood Cell Count 6.54 K/mm3 (4.00-11.30)
[2022-11-15 14:30] LABS: Albumin, Blood 3.9 g/dL (3.4-5.0); Albumin/Globulin Ratio 1.3 (0.8-1.8); Bilirubin, Total 0.7 mg/dL (0.1-1.0); Bun/Creatinine Ratio 15.7 (12.0-20.0); Creatinine, Blood 1.08 mg/dL (0.60-1.20); Potassium, Blood 4.1 mmol/L (3.5-5.5); Total Protein, Blood 6.9 g/dL (6.4-8.2)
== END 2022-11-15 16:40 | disposition home or self-care (01) ==
LOC: ATC 01:45
PROVIDERS: Internal Medicine Rheumatology
DX: M06.9 Rheumatoid arthritis, unspecified (principal); E66.9 Obesity, unspecified; I13.0 Hypertensive heart and chronic kidney disease with heart failure and stage 1 through stage 4 chronic kidney disease, or unspecified chronic kidney disease; N18.30 Chronic kidney disease, stage 3 unspecified; I50.9 Heart failure, unspecified; Z79.82 Long term (current) use of aspirin
CPT/HCPCS: 80053; 85025; 85651; 96413; 96415; A9270; J7050; Q5103

== ENCOUNTER → 2023-11-22 | Outpatient (CLI) | payer OTHER ==
[2023-11-22 19:40] LABS: BASOPHILS ABSOLUTE AUTO 0.03 K/mm3 (0.00-0.23); BASOPHILS PERCENT AUTO 1 % (0-2); EOSINOPHILS ABSOLUTE AUTO 0.06 K/mm3 (0.00-0.68); EOSINOPHILS PERCENT AUTO 1 % (0-6); Hematocrit 39.2 % (37.0-53.0); Hemoglobin 12.7 g/dL (13.5-17.5); IMMATURE GRAN ABSOLUTE AUTO 0.02 K/mm3 (0.00-0.10); IMMATURE GRAN PERCENT AUTO 0 % (0-1); LYMPHOCYTES ABSOLUTE AUTO 1.31 K/mm3 (0.84-5.20); LYMPHOCYTES PERCENT AUTO 26 % (21-46); MONOCYTES ABSOLUTE AUTO 0.42 K/mm3 (0.16-1.47); MONOCYTES PERCENT AUTO 9 % (4-13); Mean Corpuscular HGB 31.8 pg (26.0-34.0); Mean Corpuscular HGB Conc 32.4 g/dL (31.5-36.5); Mean Corpuscular Volume 98 fL (80-100); Mean Platelet Volume 12.2 fL (9.1-12.4); NEUTROPHILS ABSOLUTE AUTO 3.13 K/mm3 (1.96-9.15); NEUTROPHILS PERCENT AUTO 63 % (41-73); Platelet Count 224 K/mm3 (150-400); RDW Coefficient Variation 14.5 % (11.7-14.2); RDW Standard Deviation 52.3 fL (35.1-46.3); Red Blood Cell Count 3.99 M/mm3 (4.30-5.90); White Blood Cell Count 4.97 K/mm3 (4.00-11.30)
[2023-11-22 20:38] LABS: Albumin, Blood 3.9 g/dL (3.4-5.0); Albumin/Globulin Ratio 1.4 (0.8-1.8); Bilirubin, Total 0.7 mg/dL (0.1-1.0); Bun/Creatinine Ratio 18.5 (12.0-20.0); Calcium, Blood 8.7 mg/dL (8.5-10.1); Creatinine, Blood 1.08 mg/dL (0.60-1.20); Globulin, Blood 2.7 g/dL (2.2-4.0); Potassium, Blood 4.5 mmol/L (3.5-5.5); Total Protein, Blood 6.6 g/dL (6.4-8.2)
== END ==
LOC: LAB SHORT 18:21 → LAB 18:21
PROVIDERS: Internal Medicine Rheumatology
DX: M06.9 Rheumatoid arthritis, unspecified (principal)
CPT/HCPCS: 80053; 85025; 85651

== ENCOUNTER → 2024-02-21 | Outpatient (CLI) | payer OTHER ==
[2024-02-21 18:07] LABS: BASOPHILS ABSOLUTE AUTO 0.03 K/mm3 (0.00-0.23); BASOPHILS PERCENT AUTO 1 % (0-2); EOSINOPHILS ABSOLUTE AUTO 0.05 K/mm3 (0.00-0.68); EOSINOPHILS PERCENT AUTO 1 % (0-6); Hematocrit 39.3 % (37.0-53.0); Hemoglobin 12.9 g/dL (13.5-17.5); IMMATURE GRAN ABSOLUTE AUTO 0.02 K/mm3 (0.00-0.10); IMMATURE GRAN PERCENT AUTO 0 % (0-1); LYMPHOCYTES ABSOLUTE AUTO 1.31 K/mm3 (0.84-5.20); LYMPHOCYTES PERCENT AUTO 21 % (21-46); MONOCYTES ABSOLUTE AUTO 0.54 K/mm3 (0.16-1.47); MONOCYTES PERCENT AUTO 9 % (4-13); Mean Corpuscular HGB 31.7 pg (26.0-34.0); Mean Corpuscular HGB Conc 32.8 g/dL (31.5-36.5); Mean Corpuscular Volume 97 fL (80-100); Mean Platelet Volume 11.6 fL (9.1-12.4); NEUTROPHILS ABSOLUTE AUTO 4.25 K/mm3 (1.96-9.15); NEUTROPHILS PERCENT AUTO 69 % (41-73); Platelet Count 224 K/mm3 (150-400); RDW Coefficient Variation 14.8 % (11.7-14.2); RDW Standard Deviation 52.5 fL (35.1-46.3); Red Blood Cell Count 4.07 M/mm3 (4.30-5.90)
[2024-02-21 19:01] LABS: Albumin, Blood 3.9 g/dL (3.4-5.0); Albumin/Globulin Ratio 1.4 (0.8-1.8); Bilirubin, Total 1.1 mg/dL (0.1-1.0); Bun/Creatinine Ratio 16.2 (12.0-20.0); Creatinine, Blood 1.36 mg/dL (0.60-1.20); Globulin, Blood 2.8 g/dL (2.2-4.0); Potassium, Blood 4.7 mmol/L (3.5-5.5); Total Protein, Blood 6.7 g/dL (6.4-8.2)
== END | disposition home or self-care (01) ==
LOC: LAB SHORT 17:10 → LAB 17:10
PROVIDERS: Internal Medicine Rheumatology
DX: M06.9 Rheumatoid arthritis, unspecified (principal)
CPT/HCPCS: 80053; 85025; 85651

== ENCOUNTER → 2024-03-20 | Outpatient (CLI) | payer OTHER ==
[2024-03-20 18:43] LABS: Adenovirus F 40/41 Not Detected (NOT DETECT); Astrovirus Not Detected (NOT DETECT); Campylobacter Sp Not Detected (NOT DETECT); Cryptosporidium Not Detected (NOT DETECT); Cyclospora Cayetanensis Not Detected (NOT DETECT); E. Coli O157 Not Detected (NOT DETECT); Entamoeba Histolytica Not Detected (NOT DETECT); Enteroaggregative E. coli-EAEC Not Detected (NOT DETECT); Enteropathogenic E. coli-EPEC Detected (NOT DETECT); Enterotoxigenic E. coli-ETEC Not Detected (NOT DETECT); Giardia Lamblia Not Detected (NOT DETECT); Norovirus GI/GII Not Detected (NOT DETECT); Plesiomonas Shigelloides Not Detected (NOT DETECT); Rotavirus A Not Detected (NOT DETECT); Salmonella Sp Not Detected (NOT DETECT); Sapovirus Not Detected (NOT DETECT); Shiga Toxin-prod E. coli-STEC Not Detected (NOT DETECT); Shigella/Enteroin E. coli-EIEC Not Detected (NOT DETECT); Vibrio Cholerae Not Detected (NOT DETECT); Vibrio Sp Not Detected (NOT DETECT); Yersinia Enterocolitica Not Detected (NOT DETECT)
== END ==
LOC: LAB SHORT 12:12 → LAB 12:12
PROVIDERS: Family Medicine
DX: R15.9 Full incontinence of feces (principal)
CPT/HCPCS: 87507

== ENCOUNTER 2024-03-29 10:53 | Day surgery (SDC) | payer OTHER ==
[~2024-03-29] VITALS: Ht 170.2 cm; Wt 120.5 kg
[~2024-03-29 10:53] MED LIST changes: +Clindamycin 900mg in D5W 50ML 50 ML IV ONE; +Lactated Ringer's 1,000 ML IV ONE; +Lidocaine HCl 2% 10 ML SDA ONE; +Ropivacaine 0.5% HCL/PF 5 MG/ML 30ML Vial ONE
[2024-03-29] MEDS ORDERED: Lactated Ringer's 1,000 ML IV ONE (11:30)
[2024-03-29] MEDS ORDERED: FentaNYL Citrate 50 MCG/ML 2 ML Injection ONE (12:33)
[2024-03-29] MEDS ORDERED: Midazolam HCl 1MG / ML 2ML Vial ONE (12:33)
[2024-03-29 13:43] VITALS: BP 106/74
--- NOTE | 2024-03-29 13:53 | NUR ---
03/29/24 1353 LINNEA MAI INCENTIVE SPIROMETER GIVEN O2 DIPS DOWN TO 89% ON RA AT TIMES. PT DENIES BEING SLEEPY. DEMONSTRATES ABILITY TO USE I.S. WITHOUT DIFF
== END 2024-03-29 15:02 | disposition home or self-care (01) ==
LOC: ORSCSDS 10:53
PROVIDERS: Podiatrist Foot & Ankle Surgery
PROC: 0L8W0ZZ Division of Left Foot Tendon, Open Approach (ICD-10-PCS; principal; 2024-03-29 12:00)
PROC: 0QBR0ZZ Excision of Left Toe Phalanx, Open Approach (ICD-10-PCS; principal; 2024-03-29 12:00)
DX: M20.42 Other hammer toe(s) (acquired), left foot (principal); M79.672 Pain in left foot; M89.8X7 Other specified disorders of bone, ankle and foot; I10 Essential (primary) hypertension; I50.9 Heart failure, unspecified; J44.89 Other specified chronic obstructive pulmonary disease; K21.9 Gastro-esophageal reflux disease without esophagitis; E66.01 Morbid (severe) obesity due to excess calories; Z68.41 Body mass index [BMI] 40.0-44.9, adult; Z79.899 Other long term (current) drug therapy
CPT/HCPCS: 36415; 80048; 85025; 93005; 93010; J2001; J2250; J2795; J3010; J7120

== ENCOUNTER → 2024-05-29 | Outpatient (CLI) | payer OTHER ==
[~2024-05-29] MED LIST changes: -Clindamycin 900mg in D5W 50ML 50 ML IV ONE; -Lactated Ringer's 1,000 ML IV ONE; -Lidocaine HCl 2% 10 ML SDA ONE; -Ropivacaine 0.5% HCL/PF 5 MG/ML 30ML Vial ONE
[2024-05-29 19:47] LABS: BASOPHILS ABSOLUTE AUTO 0.04 K/mm3 (0.00-0.23); BASOPHILS PERCENT AUTO 1 % (0-2); EOSINOPHILS ABSOLUTE AUTO 0.06 K/mm3 (0.00-0.68); EOSINOPHILS PERCENT AUTO 1 % (0-6); Hematocrit 39.3 % (37.0-53.0); Hemoglobin 13.2 g/dL (13.5-17.5); IMMATURE GRAN ABSOLUTE AUTO 0.01 K/mm3 (0.00-0.10); IMMATURE GRAN PERCENT AUTO 0 % (0-1); LYMPHOCYTES ABSOLUTE AUTO 1.75 K/mm3 (0.84-5.20); LYMPHOCYTES PERCENT AUTO 35 % (21-46); MONOCYTES ABSOLUTE AUTO 0.64 K/mm3 (0.16-1.47); MONOCYTES PERCENT AUTO 13 % (4-13); Mean Corpuscular HGB 32.3 pg (26.0-34.0); Mean Corpuscular HGB Conc 33.6 g/dL (31.5-36.5); Mean Corpuscular Volume 96 fL (80-100); Mean Platelet Volume 11.4 fL (9.1-12.4); NEUTROPHILS ABSOLUTE AUTO 2.52 K/mm3 (1.96-9.15); NEUTROPHILS PERCENT AUTO 50 % (41-73); Platelet Count 245 K/mm3 (150-400); RDW Coefficient Variation 14.6 % (11.7-14.2); Red Blood Cell Count 4.09 M/mm3 (4.30-5.90); White Blood Cell Count 5.02 K/mm3 (4.00-11.30)
[2024-05-29 19:53] LABS: Albumin, Blood 3.9 g/dL (3.4-5.0); Albumin/Globulin Ratio 1.4 (0.8-1.8); Bun/Creatinine Ratio 15.2 (12.0-20.0); Calcium, Blood 9.4 mg/dL (8.5-10.1); Creatinine, Blood 1.05 mg/dL (0.60-1.20); Globulin, Blood 2.7 g/dL (2.2-4.0); Potassium, Blood 4.2 mmol/L (3.5-5.5); Total Protein, Blood 6.6 g/dL (6.4-8.2)
[2024-05-29 19:55] LABS: Prostate Specific Antigen 0.447 ng/mL (0.000-4.000)
== END | disposition home or self-care (01) ==
LOC: LAB SHORT 16:48 → LAB 16:48
PROVIDERS: Family Medicine; Internal Medicine Rheumatology
DX: Z12.5 Encounter for screening for malignant neoplasm of prostate (principal); M06.9 Rheumatoid arthritis, unspecified
CPT/HCPCS: 80053; 85025; 85651; G0103

== ENCOUNTER 2024-09-10 16:48 | Inpatient (IN) | payer OTHER ==
[~2024-09-10] VITALS: Ht 170.2 cm; Wt 116.0 kg
[2024-09-10 17:38] LABS: BASOPHILS ABSOLUTE AUTO 0.01 K/mm3 (0.00-0.23); BASOPHILS PERCENT AUTO 0 % (0-2); EOSINOPHILS PERCENT AUTO 0 % (0-6); Hematocrit 41.3 % (37.0-53.0); Hemoglobin 13.7 g/dL (13.5-17.5); IMMATURE GRAN ABSOLUTE AUTO 0.01 K/mm3 (0.00-0.10); IMMATURE GRAN PERCENT AUTO 0 % (0-1); LYMPHOCYTES ABSOLUTE AUTO 1.62 K/mm3 (0.84-5.20); LYMPHOCYTES PERCENT AUTO 39 % (21-46); MONOCYTES ABSOLUTE AUTO 0.42 K/mm3 (0.16-1.47); MONOCYTES PERCENT AUTO 10 % (4-13); Mean Corpuscular HGB 31.6 pg (26.0-34.0); Mean Corpuscular HGB Conc 33.2 g/dL (31.5-36.5); Mean Corpuscular Volume 95 fL (80-100); Mean Platelet Volume 10.4 fL (9.1-12.4); NEUTROPHILS ABSOLUTE AUTO 2.15 K/mm3 (1.96-9.15); NEUTROPHILS PERCENT AUTO 51 % (41-73); Platelet Count 167 K/mm3 (150-400); Red Blood Cell Count 4.33 M/mm3 (4.30-5.90); White Blood Cell Count 4.21 K/mm3 (4.00-11.30)
[2024-09-10 17:56] LABS: CORONAVIRUS COVID-19 AG Negative (NEGATIVE); INFLUENZA A AG Negative (NEGATIVE); INFLUENZA B AG Negative (NEGATIVE)
[2024-09-10 17:59] LABS: Albumin, Blood 3.8 g/dL (3.4-5.0); Albumin/Globulin Ratio 1.1 (0.8-1.8); Bilirubin, Total 0.9 mg/dL (0.1-1.0); Bun/Creatinine Ratio 12.6 (12.0-20.0); Calcium, Blood 8.6 mg/dL (8.5-10.1); Creatinine, Blood 1.27 mg/dL (0.60-1.20); Globulin, Blood 3.6 g/dL (2.2-4.0); Potassium, Blood 4.2 mmol/L (3.5-5.5); Total Protein, Blood 7.4 g/dL (6.4-8.2)
[2024-09-10] MEDS ORDERED: Albuterol 2.5 MG/3 ML VIAL INH SCH (19:40)
[2024-09-10] MEDS ORDERED: MethylPREDNISolone Sod Succ 125 MG Vial IV ONE (19:40)
[2024-09-10] MEDS ORDERED: Ipratropium/Albuterol SulF 2.5-0.5MG/3 ML Amp INH ONE (19:45)
[2024-09-10] MEDS ORDERED: Azithromycin 250 MG Tab PO ONE (19:45)
[2024-09-10 19:58] LABS: Source, Urine Clean Catch
[2024-09-10 20:01] LABS: Appearance, Urine Clear (Clear); Bilirubin, Urine Neg (Neg); Blood, Urine Neg (Neg); Color, Urine Yellow (P-Yellow); Glucose Qualitative, Urine 4+ (Neg); Ketones, Urine Neg (Neg); Leukocyte Esterase, Urine Neg (Neg); Nitrite, Urine Neg (Neg); Protein, Urine 2+ (Neg); Specific Gravity, Urine 1.015 (1.003-1.022); Urobilinogen, Urine NORM (Normal)
[2024-09-10 20:08] LABS: Bacteria Many /hpf; Squamous Epithelial Cells Rare /hpf (Few); White Blood Cells, Urine 0-2 /hpf (0-5)
[2024-09-10 20:14] LABS: Base Excess Venous 2.2 mmol/L; Bicarbonate Venous 26.1 mmol/L (24.0-30.0); PCO2 Venous 41.3 mmHg (38-42); pH Blood Venous 7.42 (7.34-7.37)
[2024-09-10] MEDS ORDERED: Ipratropium/Albuterol SulF 2.5-0.5MG/3 ML Amp INH PRN (22:30)
[2024-09-10] MEDS ORDERED: Acetaminophen 325 MG TABLET PO PRN (22:35)
[2024-09-10] MEDS ORDERED: Ondansetron HCl 2 MG / ML 2ML Vial IV PRN (22:35)
[2024-09-10] MEDS ORDERED: FLU VACC TS2024-25(6MOS UP)/PF 45 MCG/0.5 ML SYRINGE IM ONE (22:35)
[2024-09-10] MEDS ORDERED: Enoxaparin 40 MG/0.4 ML SYR SC SCH (23:00)
[2024-09-11] MEDS ORDERED: MethylPREDNISolone Sod Succ 125 MG Vial IV SCH
--- NOTE | 2024-09-11 00:05 | NUR ---
NEW ADMIT. PATIENT ADMITTED TO ROOM 309 FROM THE ER. PATIENT ARRIVED TO ROOM 309 WITH SIGNIFICANT OTHER AT BEDSUDE. PATIENT ABLE TO STAND PIVOT FROM GURNEY TO HOSPITAL BED WITH UNSTEADY GAIT. PATIENT REQUESTING TO USE THE BATHROOM, PATIENT IS WEAK AND REQUIRING 6L'S OF OXYGEN-RA IS BASELINE. PATIENT ARRIVED TO ROOM WITH 1 PERSONAL BELONGINGS BAG. PATIENT ORIENTED TO ROOM. THIS RN TO ASSUME PATIENT CARE.
[2024-09-11 00:45] VITALS: BP 150/75
[2024-09-11] MEDS ORDERED: Loperamide HCl 2 MG Cap PO PRN (02:35)
[2024-09-11 03:45] VITALS: BP 164/91
--- NOTE | 2024-09-11 04:32 | NUR ---
SHIFT SUMMARY. PATIENT IS A&O4. PATIENT ADMITTED WITH COPD EXACERBATION CURRENTLY REQUIRING 6 LPM VIA NASAL CANNULA-PATIENT IS DYSPNIC WITH EXERTION. PATIENT INDEPENDENT AT BASELINE-GAIT IS UNSTEADY AND PATIENT APPEARS FATIGUED WITH AN INCREASE WORK OF BREATHING WITH ACTIVITY. PATIENT HAS FRIEND AT BEDSIDE. PATIENT DID NOT KNOW HIS MEDICATION, HE GOES OFF OF HIS BOTTLES AND FILLS HIS MEDS WEEKLY WITH MEDICATION BOXES. PATIENT ORIENTED TO ROOM AND CALL LIGHT. PATIENT IS ABLE TO MAKE HIS NEEDS KNOWN. PATIENT TO USE BSC. PATIENT C/O DIARRHEA X2 WKS-CURRENTLY NEEDING TO OBTAIN A FECAL SAMPLE AND A SPUTUM SAMPLE-WILL RELAY TO DAYSHIFT NURSE. PATIENT IS RESTING WITH RESPIRATIONS EQUAL AND UNLABORED AT THIS TIME. BED IS LOCKED IN THE LOWEST POSITION WITH CALL LIGHT IN REACH. CARE IS ONGOING.
--- NOTE | 2024-09-11 07:00 | NUR ---
ASSUMED CARE OF PT- PT IN BED SLEEPING AT THE TIME OF BEDSIDE REPORT. PT WOKE TO STAFF VOICES, WHEN ASKED IF HE HAD ANYTHING TO ADD TO THE REPORT HE STATED "I HAVE TO LEAVE THE HOSPITAL THIS MORNING. I HAVE A COMMITTMENT." WHEN ASKED WHAT THE COMMITMENT WAS HE STATED "I JUST NEED TO LEAVE." PT IN BED, CALL LIGHT IN REACH SO AT THE BEDSIDE. PT IS CURRENTLY ON 7L VIA NC. NC ONLY WORKS UP TO 5L, SO REDUCED FLOW METER TO 5L. ON MORNING VITALS SATS WERE 94% ON 5L VIA NC.
[2024-09-11 07:43] VITALS: BP 161/87
--- NOTE | 2024-09-11 07:56 | NUR ---
CALLED DR REAL- AT THE PT REQUEST, HE WANTS TO BE DISCHARGED EARLY TODAY. PER DR REAL THE PT O2 WAS TITRATED TO 3L VIA NC, WILL RECHECK SATS SHORTLY. PT WAS EDUCATED ON THE NEED FOR O2. HE STATES HE FEELS BETTER NOW; HOWEVER THIS IS LIKELY RELATED TO THE O2 HE IS RECIEVING. PT IN BED, CALL LIGHT IN REACH NO S&S OF DISTRESS, SO AT THE BEDSIDE AND AWAKE.
[2024-09-11] MEDS ORDERED: ATOR40TA PO (08:56)
[2024-09-11] MEDS ORDERED: ERYT.5TO RIGHTEYE (08:57)
[2024-09-11] MEDS ORDERED: ENTRESTO 24 MG1 EACH PO (08:57)
[2024-09-11] MEDS ORDERED: FARXIGA10 MG PO (08:57)
[2024-09-11] MEDS ORDERED: HYDROCODONE-AC1 EA10 PO (08:58)
[2024-09-11] MEDS ORDERED: ARAVA10 M1 PO (08:58)
[2024-09-11] MEDS ORDERED: PRED5 PO (08:59)
[2024-09-11] MEDS ORDERED: SPIR25 PO (09:00)
[2024-09-11] MEDS ORDERED: RINVOQ ER15 MG PO (09:00)
[2024-09-11] MEDS ORDERED: Aspirin 81 MG TabEC PO SCH (09:00)
[2024-09-11] MEDS ORDERED: TAMS.4ER PO (09:00)
--- NOTE | 2024-09-11 09:14 | NUR ---
DISCHARGE NOTE- PT LEFT AMA DR REAL CAME AND MED WITH THE PT AND SO. PT INSISTENT ON LEAVING AND GOING HOME. DR REAL EXPLAINED THE RISKS OF LEAVING THE HOSPITAL AT THIS TIME AND THE PT STILL INSISTED. SHE OFFERED TO HAVE A HOME O2 EVAL DONE ON THE PT, HER REFUSED THAT STATING IT "WILL TAKE TOO LONG." IV AND TELE DC'D, PT SO LEFT. PT STATES HE WILL BE DRIVING HIMSELF HOME. INFORMED HIM WE ARE NOT HOLDING HIM, HOWEVER WE ARE NOT ABLE TO ASSIST HIM TO LEAVE AGAINST MEDICAL ADVICE. PT IS GETTING HIMSELF DRESSED AT THIS TIME. HE WALK OUT ON HIS OWN.
[2024-09-11] MEDS ORDERED: Azithromycin 500 MG in NS 250 ML IV SCH (18:00)
== END 2024-09-11 09:50 | disposition left against medical advice (07) | DRG 189 ==
LOC: ER 16:48 → ERHOLD 22:20 → MEDS 22:20
PROVIDERS: Physician Assistant; Student in an Organized Health Care Education/Training Program; ADMIT Internal Medicine
DX: J96.01 Acute respiratory failure with hypoxia (principal); J44.1 Chronic obstructive pulmonary disease with (acute) exacerbation; I13.0 Hypertensive heart and chronic kidney disease with heart failure and stage 1 through stage 4 chronic kidney disease, or unspecified chronic kidney disease; N18.9 Chronic kidney disease, unspecified; I50.9 Heart failure, unspecified; M06.9 Rheumatoid arthritis, unspecified; E78.5 Hyperlipidemia, unspecified; K21.9 Gastro-esophageal reflux disease without esophagitis; G62.9 Polyneuropathy, unspecified; K52.9 Noninfective gastroenteritis and colitis, unspecified; R91.8 Other nonspecific abnormal finding of lung field; Z53.29 Procedure and treatment not carried out because of patient's decision for other reasons; Z88.0 Allergy status to penicillin; Z79.82 Long term (current) use of aspirin; Z79.899 Other long term (current) drug therapy; Z79.52 Long term (current) use of systemic steroids; Z28.21 Immunization not carried out because of patient refusal
CPT/HCPCS: 71046; 80053; 81001; 82803; 83690; 83880; 84484; 85025; 87086; 87428-QW; 93005; 93010; 94644; 94664; 96374; 99285-25; A9270; J2919

== ENCOUNTER 2024-10-25 11:00 | Inpatient (IN) | payer OTHER ==
[~2024-10-25] VITALS: Ht 170.2 cm; Wt 119.8 kg
[~2024-10-25 11:00] MED LIST changes: +ARAVA10 M1 PO; +ATOR40TA PO; +ENTRESTO 24 MG1 EACH PO; +ERYT.5TO RIGHTEYE; +FARXIGA10 MG PO; +FURO20 PO; -FURO40 PO; +HYDROCODONE-AC1 EA10 PO; -Methocarbamol750 MG PO; +PRED5 PO; +RINVOQ ER15 MG PO; +Robaxin750 MG PO; +SPIR25 PO
[2024-10-25] MEDS ORDERED: MethylPREDNISolone Sod Succ 125 MG Vial IV ONE (11:40)
[2024-10-25] MEDS ORDERED: Albuterol 2.5 MG/3 ML VIAL INH SCH (11:40)
[2024-10-25 11:53] LABS: BASOPHILS ABSOLUTE AUTO 0.02 K/mm3 (0.00-0.23); BASOPHILS PERCENT AUTO 0 % (0-2); EOSINOPHILS ABSOLUTE AUTO 0.02 K/mm3 (0.00-0.68); EOSINOPHILS PERCENT AUTO 0 % (0-6); Hematocrit 34.9 % (37.0-53.0); Hemoglobin 11.4 g/dL (13.5-17.5); IMMATURE GRAN ABSOLUTE AUTO 0.02 K/mm3 (0.00-0.10); IMMATURE GRAN PERCENT AUTO 0 % (0-1); LYMPHOCYTES PERCENT AUTO 19 % (21-46); MONOCYTES ABSOLUTE AUTO 0.66 K/mm3 (0.16-1.47); MONOCYTES PERCENT AUTO 10 % (4-13); Mean Corpuscular HGB Conc 32.7 g/dL (31.5-36.5); Mean Corpuscular Volume 98 fL (80-100); Mean Platelet Volume 10.9 fL (9.1-12.4); NEUTROPHILS ABSOLUTE AUTO 4.52 K/mm3 (1.96-9.15); NEUTROPHILS PERCENT AUTO 70 % (41-73); Platelet Count 207 K/mm3 (150-400); RDW Coefficient Variation 15.8 % (11.7-14.2); RDW Standard Deviation 56.4 fL (35.1-46.3); Red Blood Cell Count 3.56 M/mm3 (4.30-5.90); White Blood Cell Count 6.44 K/mm3 (4.00-11.30)
[2024-10-25 12:10] LABS: Bun/Creatinine Ratio 19.7 (12.0-20.0); Calcium, Blood 8.1 mg/dL (8.5-10.1); Creatinine, Blood 1.57 mg/dL (0.60-1.20)
[2024-10-25 12:24] LABS: Base Excess Venous 3.3 mmol/L; Bicarbonate Venous 25.8 mmol/L (24.0-30.0); PCO2 Venous 58.9 mmHg (38-42); pH Blood Venous 7.31 (7.34-7.37)
[2024-10-25] MEDS ORDERED: NS 1,000 ML IV SCH (12:30)
[2024-10-25 13:03] LABS: Influenza A, PCR NEGATIVE (NEGATIVE); Influenza B, PCR NEGATIVE (NEGATIVE); Resp Syncytial Virus, PCR NEGATIVE (NEGATIVE); SARS-Cov-2 (COVID-19) PCR, MMC NEGATIVE (NEGATIVE)
[2024-10-25] MEDS ORDERED: Ipratropium/Albuterol SulF 2.5-0.5MG/3 ML Amp INH SCH (15:50)
[2024-10-25] MEDS ORDERED: Acetaminophen 325 MG TABLET PO PRN (15:55)
[2024-10-25] MEDS ORDERED: HYDROcodone 7.5-APAP 325 TAB PO PRN (15:55)
[2024-10-25] MEDS ORDERED: Prochlorperazine Edisylate 10 mg Vial IV PRN (16:00)
[2024-10-25] MEDS ORDERED: FLU VACC TS2024-25(6MOS UP)/PF 45 MCG/0.5 ML SYRINGE IM SCH (16:00)
[2024-10-25] MEDS ORDERED: Azithromycin 500 MG in NS 250 ML IV SCH (16:00)
[2024-10-25] MEDS ORDERED: Azithromycin 500 MG in NS 250 ML IV ONE (18:35)
[2024-10-25 19:38] VITALS: BP 119/68
[2024-10-25] MEDS ORDERED: Pregabalin 50 MG Capsule PO SCH (21:00)
[2024-10-25] MEDS ORDERED: Sennosides 8.6 MG Tab PO SCH (21:00)
[2024-10-25] MEDS ORDERED: MethylPREDNISolone Sod Succ 125 MG Vial IV SCH (22:00)
[2024-10-26 04:55] VITALS: BP 146/80
--- NOTE | 2024-10-26 05:42 | NUR ---
SHIFT SUMMARY ADMITTED TO ROOM 329 ARRIVING AT 1930 FROM ED FOR COPD EXACERBATION. ALERT,ORIENTED X4, COOPERARTIVE SOMEWHAT ANXIOUS, LUNG SOUNDS WHEEZY AND COURSE T/O. VERY SOB WITH MINIMAL EXERTION, O2 ON AT 4 L/M VIA NC ON ARRIVAL AND HAS STAYED AT THIS LEVEL T/O SHIFT. EDUCATED REGARDING OXYGEN, IV STEROIDS,ANTIBIOTICS,NEDS,OXIMETERY. CONTINUOUS OXIEMTERY ONGOING AND SATS HAVE BEEN LOW TO MID 90S ON ROUNDS AT REST AND UPPER 80S WITH MIN. EXERTIOB SUCH USING URINAL/SITTING UP EDGE OF BED, SATS USUALLY 96-97% DURING SLEEP. HRs IN 70S. RECEIVED NEB TXs FROM RT, NO ACUTE DISTRESS, HAS NOT AMBULATED, ENERGY CONSERVATION DISCUSSED. VSS.
[2024-10-26 06:08] LABS: Base Excess Venous 0.9 mmol/L; Bicarbonate Venous 25.5 mmol/L (24.0-30.0); PCO2 Venous 33.8 mmHg (38-42); pH Blood Venous 7.47 (7.34-7.37)
[2024-10-26 06:09] LABS: BASOPHILS ABSOLUTE AUTO 0.01 K/mm3 (0.00-0.23); BASOPHILS PERCENT AUTO 0 % (0-2); EOSINOPHILS PERCENT AUTO 0 % (0-6); Hematocrit 36.3 % (37.0-53.0); Hemoglobin 11.6 g/dL (13.5-17.5); IMMATURE GRAN ABSOLUTE AUTO 0.03 K/mm3 (0.00-0.10); IMMATURE GRAN PERCENT AUTO 0 % (0-1); LYMPHOCYTES ABSOLUTE AUTO 0.57 K/mm3 (0.84-5.20); LYMPHOCYTES PERCENT AUTO 8 % (21-46); MONOCYTES ABSOLUTE AUTO 0.31 K/mm3 (0.16-1.47); MONOCYTES PERCENT AUTO 4 % (4-13); Mean Corpuscular HGB 32.1 pg (26.0-34.0); Mean Corpuscular Volume 101 fL (80-100); Mean Platelet Volume 10.9 fL (9.1-12.4); NEUTROPHILS ABSOLUTE AUTO 6.57 K/mm3 (1.96-9.15); NEUTROPHILS PERCENT AUTO 88 % (41-73); Platelet Count 203 K/mm3 (150-400); RDW Coefficient Variation 15.8 % (11.7-14.2); RDW Standard Deviation 58.8 fL (35.1-46.3); Red Blood Cell Count 3.61 M/mm3 (4.30-5.90); White Blood Cell Count 7.49 K/mm3 (4.00-11.30)
[2024-10-26 06:34] LABS: Bun/Creatinine Ratio 22.9 (12.0-20.0); Calcium, Blood 7.4 mg/dL (8.5-10.1); Creatinine, Blood 1.05 mg/dL (0.60-1.20); Potassium, Blood 4.4 mmol/L (3.5-5.5)
[2024-10-26 07:28] VITALS: BP 136/78
[2024-10-26] MEDS ORDERED: Losartan Potassium 50 MG Tab PO SCH (09:00)
[2024-10-26] MEDS ORDERED: Metoprolol Succinate 50 MG TABCR PO SCH (09:00)
[2024-10-26] MEDS ORDERED: Potassium Chloride 20 MEQ TabCR PO SCH (09:00)
[2024-10-26] MEDS ORDERED: Furosemide 40 MG Tab PO SCH (09:00)
[2024-10-26] MEDS ORDERED: Enoxaparin 40 MG/0.4 ML SYR SC SCH (09:00)
[2024-10-26] MEDS ORDERED: Insulin Human Lispro 100 Units/ML 3ML Syringe SC SCH (11:30)
[2024-10-26] MEDS ORDERED: NS 250 ML IV PRN (16:05)
[2024-10-26 16:36] VITALS: BP 121/75
[2024-10-26] MEDS ORDERED: Erythromycin 0.5% Opth Oint 3.5 gm RIGHTEYE SCH (17:00)
--- NOTE | 2024-10-26 18:05 | NUR ---
SHIFT SUMMARY PT AOX4, COOPERATIVE, ABLE TO MAKE NEEDS KNOWN. PT IS SBA TO BATHROOM USING 4L O2, ON CONT PULSE OX. AC BLOOD SUGAR CHECKS. 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 TOLERATING PO AND IV MEDICATION APPROPRIATELY. BED IN LOWEST POSITION, CALL LIGHT WITHIN REACH.
[2024-10-26 19:52] VITALS: BP 138/89
[2024-10-26] MEDS ORDERED: MOBIC15 MG PO (20:34)
[2024-10-26] MEDS ORDERED: Sacubitril/Valsartan 24 MG-26 MG Tab PO SCH (21:00)
[2024-10-27 02:39] VITALS: BP 161/85
--- NOTE | 2024-10-27 05:26 | NUR ---
SHIFT SUMMARY PT ALERT AND ORIENTED TIMES 4. PT ADMITTED FOR COPD WITH EXACERBATION . PT IS ARGUMENTATIVE WITH SOME STAFF. PT DID NOT SLEEP WELL AND WAS UPSET THAT ALL HIS MEDICATION WAS NOT AVAILABLE. NURSE WENT OVER MEDICATION WITH PT A COUPLE TIMES. PT GOT PRN OXY PER REQUEST. CALL LIGHT WITHIN REACH, RAILS TIMES 2, BED IN LOW POSITION.
[2024-10-27 07:21] VITALS: BP 133/92
[2024-10-27 07:28] LABS: BASOPHILS ABSOLUTE AUTO 0.01 K/mm3 (0.00-0.23); BASOPHILS PERCENT AUTO 0 % (0-2); Base Excess Venous 1.9 mmol/L; Bicarbonate Venous 26.4 mmol/L (24.0-30.0); EOSINOPHILS PERCENT AUTO 0 % (0-6); Hemoglobin 11.9 g/dL (13.5-17.5); IMMATURE GRAN ABSOLUTE AUTO 0.06 K/mm3 (0.00-0.10); IMMATURE GRAN PERCENT AUTO 1 % (0-1); LYMPHOCYTES ABSOLUTE AUTO 0.67 K/mm3 (0.84-5.20); LYMPHOCYTES PERCENT AUTO 5 % (21-46); MONOCYTES ABSOLUTE AUTO 0.69 K/mm3 (0.16-1.47); MONOCYTES PERCENT AUTO 6 % (4-13); Mean Corpuscular HGB 31.2 pg (26.0-34.0); Mean Corpuscular HGB Conc 32.2 g/dL (31.5-36.5); Mean Corpuscular Volume 97 fL (80-100); Mean Platelet Volume 10.7 fL (9.1-12.4); NEUTROPHILS PERCENT AUTO 89 % (41-73); PCO2 Venous 33.3 mmHg (38-42); Platelet Count 247 K/mm3 (150-400); RDW Coefficient Variation 15.8 % (11.7-14.2); RDW Standard Deviation 56.5 fL (35.1-46.3); Red Blood Cell Count 3.81 M/mm3 (4.30-5.90); White Blood Cell Count 12.53 K/mm3 (4.00-11.30); pH Blood Venous 7.49 (7.34-7.37)
[2024-10-27 07:50] LABS: Bun/Creatinine Ratio 26.7 (12.0-20.0); Calcium, Blood 8.2 mg/dL (8.5-10.1); Creatinine, Blood 0.94 mg/dL (0.60-1.20); Potassium, Blood 4.2 mmol/L (3.5-5.5)
[2024-10-27] MEDS ORDERED: Tamsulosin HCl 0.4 MG Cap PO SCH (09:00)
[2024-10-27] MEDS ORDERED: Spironolactone 25 MG Tab PO SCH (09:00)
[2024-10-27] MEDS ORDERED: Empagliflozin 25 MG TAB PO SCH (09:00)
[2024-10-27] MEDS ORDERED: Misc. Tablet PO SCH (09:00)
[2024-10-27 16:40] VITALS: BP 131/81
--- NOTE | 2024-10-27 17:08 | NUR ---
SHIFT SUMMARY PT AOX4, COOPERATIVE, ABLE TO MAKE NEEDS KNOWN. SBA TO BATHROOM FOR VOIDING. ON 4L O2 CONSTANTLY TO MAINTAIN ABOVE 90%. TOLERATING PO AND IV MEDICATION. SUPPOSED TO DC TOMORROW ON PO STEROIDS. BED IN LOWEST POSITION, CALL LIGHT WITHIN REACH.
[2024-10-27 19:52] VITALS: BP 150/94
[2024-10-27] MEDS ORDERED: TraZODone HCl 50 MG Tab PO SCH (21:00)
[2024-10-28 04:05] VITALS: BP 130/99
--- NOTE | 2024-10-28 05:09 | NUR ---
SHIFT SUMMARY PT ALERT ORIENTED X 4 ABLE TO VERBALIZE NEEDS. HE PREFERS TO BE LEFT ALONE. HE GOT HIS TRAZADONE LAST NIGHT AND SLEPT MOST OF THE NIGHT. NO C/O PAIN THIS SHIFT. HE USES THE URINAL. REMAINS ON 4L VIA NC NO C/O SOB. CONTINUES ON ZITHROMAX ORDERED. CONTINUES ON A CONTINUOUS PULSE OX. HES A POSSIBLE DISCHARGE TODAY WITH PO STEROIDS. RESTING IN BED AT THIS TIME WITH CALL LIGHT IN REACH
[2024-10-28 07:07] VITALS: BP 151/84
[2024-10-28 07:29] LABS: Base Excess Venous 6.4 mmol/L; Bicarbonate Venous 29.9 mmol/L (24.0-30.0); PCO2 Venous 38.1 mmHg (38-42)
[2024-10-28] MEDS ORDERED: PredniSONE 20 MG Tab PO SCH (09:00)
[2024-10-28] MEDS ORDERED: IPRAT-ALBUT 0.5-3 ML NEB (11:03)
[2024-10-28] MEDS ORDERED: ANORO ELLIPTA1 EAC1 INH (11:08)
[2024-10-28] MEDS ORDERED: HYDROCODONE-AC1 EA19 PO (12:36)
[2024-10-28] MEDS ORDERED: SPIRIVA RESPIMAT4 G3 INH (12:38)
[2024-10-28] MEDS ORDERED: IPRAT-ALBUT 0.5-3 ML INH (12:39)
--- NOTE | 2024-10-28 13:34 | NUR ---
PATIENT DC'D TO HOME WITH FAMILY. DC INSTRUCTIONS AND EDUCATION DISCUSSED WITH PATIENT AND COPY PROVIDED. EX MEDICATIONS FAXED TO [facility]. PATIENT TO CALL AND MAKE AN APPOINTMENT WITH PC AND CRANBERRY BOG SUPERVISOR. PATIENT DENIES ANY FURTHER QUESTIONS CONCERNS.
== END 2024-10-28 13:52 | disposition home or self-care (01) | DRG 189 ==
LOC: ER 11:00 → MEDS 15:54 → ERHOLD 15:54 → MEDS 19:33
PROVIDERS: Emergency Medicine; ADMIT Internal Medicine
DX: J96.21 Acute and chronic respiratory failure with hypoxia (principal); J44.1 Chronic obstructive pulmonary disease with (acute) exacerbation; D80.9 Immunodeficiency with predominantly antibody defects, unspecified; I13.0 Hypertensive heart and chronic kidney disease with heart failure and stage 1 through stage 4 chronic kidney disease, or unspecified chronic kidney disease; I50.32 Chronic diastolic (congestive) heart failure; Z68.42 Body mass index [BMI] 45.0-49.9, adult; E87.3 Alkalosis; N17.9 Acute kidney failure, unspecified; N18.9 Chronic kidney disease, unspecified; M06.9 Rheumatoid arthritis, unspecified; E78.5 Hyperlipidemia, unspecified; K21.9 Gastro-esophageal reflux disease without esophagitis; F32.A Depression, unspecified; G62.9 Polyneuropathy, unspecified; G47.30 Sleep apnea, unspecified; M20.42 Other hammer toe(s) (acquired), left foot; E83.51 Hypocalcemia; G89.4 Chronic pain syndrome; N40.1 Benign prostatic hyperplasia with lower urinary tract symptoms; R73.9 Hyperglycemia, unspecified; K76.0 Fatty (change of) liver, not elsewhere classified; F10.20 Alcohol dependence, uncomplicated; R19.7 Diarrhea, unspecified; J96.22 Acute and chronic respiratory failure with hypercapnia; Z87.891 Personal history of nicotine dependence; Z98.61 Coronary angioplasty status; Z86.73 Personal history of transient ischemic attack (TIA), and cerebral infarction without residual deficits; Z88.0 Allergy status to penicillin; Z79.82 Long term (current) use of aspirin; Z79.51 Long term (current) use of inhaled steroids; Z79.899 Other long term (current) drug therapy; Z79.891 Long term (current) use of opiate analgesic; Z79.52 Long term (current) use of systemic steroids; Z99.81 Dependence on supplemental oxygen; Z87.01 Personal history of pneumonia (recurrent); Z99.89 Dependence on other enabling machines and devices
CPT/HCPCS: 0241U; 36415; 71045; 71260; 80048; 82784; 82803; 82947; 82977; 83036; 83880; 83883; 84450; 84460; 84484; 84520; 85025; 85379; 86140; 86364; 93005; 93010; 94640; 94644; 94664; 94762; 96361; 96374-59; 99285-25; A9270; J0456; J1650; J2919; J7030; J7050; J7512; Q9967

== ENCOUNTER → 2024-10-31 | Outpatient (CLI) | payer OTHER ==
[~2024-10-31] MED LIST changes: +ANORO ELLIPTA1 EAC1 INH; +HYDROCODONE-AC1 EA19 PO; +IPRAT-ALBUT 0.5-3 ML INH; +IPRAT-ALBUT 0.5-3 ML NEB; +MOBIC15 MG PO; +SPIRIVA RESPIMAT4 G3 INH
[2024-10-31 15:24] LABS: Adenovirus F 40/41 Not Detected (NOT DETECT); Astrovirus Not Detected (NOT DETECT); Campylobacter Sp Not Detected (NOT DETECT); Cryptosporidium Not Detected (NOT DETECT); Cyclospora Cayetanensis Not Detected (NOT DETECT); E. Coli O157 Not Detected (NOT DETECT); Entamoeba Histolytica Not Detected (NOT DETECT); Enteroaggregative E. coli-EAEC Not Detected (NOT DETECT); Enteropathogenic E. coli-EPEC Not Detected (NOT DETECT); Enterotoxigenic E. coli-ETEC Not Detected (NOT DETECT); Giardia Lamblia Not Detected (NOT DETECT); Norovirus GI/GII Not Detected (NOT DETECT); Plesiomonas Shigelloides Not Detected (NOT DETECT); Rotavirus A Not Detected (NOT DETECT); Salmonella Sp Not Detected (NOT DETECT); Sapovirus Not Detected (NOT DETECT); Shiga Toxin-prod E. coli-STEC Not Detected (NOT DETECT); Shigella/Enteroin E. coli-EIEC Not Detected (NOT DETECT); Vibrio Cholerae Not Detected (NOT DETECT); Vibrio Sp Not Detected (NOT DETECT); Yersinia Enterocolitica Not Detected (NOT DETECT)
[2024-11-04 17:14] LABS: CALPROTECTIN,FECAL 196 ug/g (<=49)
== END ==
LOC: LAB 08:00 → LAB SHORT 08:00
PROVIDERS: Nurse Practitioner Family
DX: R19.7 Diarrhea, unspecified (principal)
CPT/HCPCS: 83993; 87507

== ENCOUNTER 2024-12-19 12:39 | Inpatient (IN) | payer OTHER ==
[~2024-12-19] VITALS: Ht 170.2 cm; Wt 113.7 kg
[2024-12-19] MEDS ORDERED: Albuterol 2.5 MG/3 ML VIAL INH SCH (13:10)
[2024-12-19 13:13] LABS: Base Excess Venous 2.8 mmol/L; Bicarbonate Venous 26.3 mmol/L (24.0-30.0); PCO2 Venous 46.5 mmHg (38-42); pH Blood Venous 7.39 (7.34-7.37)
[2024-12-19 13:25] LABS: BASOPHILS ABSOLUTE AUTO 0.02 K/mm3 (0.00-0.23); BASOPHILS PERCENT AUTO 0 % (0-2); EOSINOPHILS ABSOLUTE AUTO 0.06 K/mm3 (0.00-0.68); EOSINOPHILS PERCENT AUTO 1 % (0-6); Hematocrit 35.7 % (37.0-53.0); Hemoglobin 11.7 g/dL (13.5-17.5); IMMATURE GRAN PERCENT AUTO 1 % (0-1); LYMPHOCYTES ABSOLUTE AUTO 1.12 K/mm3 (0.84-5.20); LYMPHOCYTES PERCENT AUTO 14 % (21-46); MONOCYTES ABSOLUTE AUTO 0.67 K/mm3 (0.16-1.47); MONOCYTES PERCENT AUTO 8 % (4-13); Mean Corpuscular HGB 32.4 pg (26.0-34.0); Mean Corpuscular HGB Conc 32.8 g/dL (31.5-36.5); Mean Corpuscular Volume 99 fL (80-100); Mean Platelet Volume 10.8 fL (9.1-12.4); NEUTROPHILS ABSOLUTE AUTO 6.21 K/mm3 (1.96-9.15); NEUTROPHILS PERCENT AUTO 76 % (41-73); NRBC ABSOLUTE 0.06 K/mm3 (0.00-0.02); NRBC Auto 0.7 /100 WBC (0.0-0.2); Platelet Count 160 K/mm3 (150-400); RDW Coefficient Variation 16.4 % (11.7-14.2); RDW Standard Deviation 58.3 fL (35.1-46.3); Red Blood Cell Count 3.61 M/mm3 (4.30-5.90); White Blood Cell Count 8.18 K/mm3 (4.00-11.30)
[2024-12-19 13:37] LABS: Albumin, Blood 3.2 g/dL (3.4-5.0); Bilirubin, Total 0.7 mg/dL (0.1-1.0); Bun/Creatinine Ratio 20.5 (12.0-20.0); Calcium, Blood 8.8 mg/dL (8.5-10.1); Creatinine, Blood 1.27 mg/dL (0.60-1.20); Globulin, Blood 3.2 g/dL (2.2-4.0); Potassium, Blood 4.2 mmol/L (3.5-5.5); Total Protein, Blood 6.4 g/dL (6.4-8.2)
[2024-12-19] MEDS ORDERED: Ondansetron HCl 2 MG / ML 2ML Vial IV PRN (14:45)
[2024-12-19] MEDS ORDERED: Ipratropium/Albuterol SulF 2.5-0.5MG/3 ML Amp INH SCH (14:50)
[2024-12-19] MEDS ORDERED: MethylPREDNISolone Sod Succ 125 MG Vial IV SCH (15:00)
[2024-12-19] MEDS ORDERED: Azithromycin 500 MG in NS 250 ML IV ONE (15:00)
[2024-12-19 16:00] VITALS: BP 118/64
[2024-12-19] MEDS ORDERED: COLESTID1 G1 PO (17:19)
[2024-12-19] MEDS ORDERED: MISCSOL PO (17:29)
[2024-12-19] MEDS ORDERED: Insulin Human Lispro 100 Units/ML 3ML Syringe SC SCH (18:00)
--- NOTE | 2024-12-19 18:00 | NUR ---
PT WAS A NEW ADMIT EVENING PT TRANSFERED FROM [facility] TO BED WHILE ON THE BIPAP 13/03 @ 50%. PT IS A&OX4, AND MAKES HIS NEEDS KNOWN. THIS RN DID A PCR WHEN THE PT GOT TO THE ROOM. RESULTS PENDING. THE PT HAD A DDIMER DRAWN AND IT WAS ELEVATED TO 5.71. THIS RN CALLED DR. CARLOS AND HE ORDERED A STAT CT-PE AND WANTED THE PT SWITCHED TO NONBREATHER WHILE WE AWAIT A PE R/O. ON TELE HE IS SR 80'S. BP STABLE. HE USES THE URINAL AT BEDSIDE. HE HAS FAMILY AT BEDSIDE AND THEY WERE UPDATED ON CARE. SEE NOTES FOR UPDATES.
[2024-12-19] MEDS ORDERED: Acetaminophen 325 MG TABLET PO PRN (18:05)
[2024-12-19 18:23] LABS: Adenovirus Not Detected (NOT DETECT); Bordetella pertussis Not Detected (NOT DETECT); Chlamydophila pneumoniae Not Detected (NOT DETECT); Coronavirus 229E Not Detected (NOT DETECT); Coronavirus HKU1 Not Detected (NOT DETECT); Coronavirus NL63 Not Detected (NOT DETECT); Coronavirus OC43 Not Detected (NOT DETECT); Human Metapneumovirus Not Detected (NOT DETECT); Human Rhinovirus/Enterovirus Not Detected (NOT DETECT); Influenza A/2009-H1 Not Detected (NOT DETECT); Influenza A/H1 Not Detected (NOT DETECT); Influenza A/H3 Not Detected (NOT DETECT); Influenza B Not Detected (NOT DETECT); Mycoplasma pneumoniae Not Detected (NOT DETECT); Parainfluenza Virus 1 Not Detected (NOT DETECT); Parainfluenza Virus 2 Not Detected (NOT DETECT); Parainfluenza Virus 3 Not Detected (NOT DETECT); Parainfluenza Virus 4 Not Detected (NOT DETECT); Respiratory Syncytial Virus Not Detected (NOT DETECT); SARS-Cov-2 (COVID-19), BioFire Not Detected (NOT DETECT)
[2024-12-19 19:34] VITALS: BP 140/94
[2024-12-19] MEDS ORDERED: Melatonin 3 MG Tab PO ONE (20:36)
[2024-12-19 22:35] LABS: Anti-Xa UFH, PHA Monitoring <0.10 IU/mL; International Normalized Ratio 1.13
[2024-12-19] MEDS ORDERED: Heparin Sodium,Porcine/0.5 NS 500 ML IV SCH (23:10)
[2024-12-19] MEDS ORDERED: Heparin Sodium 5000 Units/ML 1ML MDV IV ONE (23:10)
[2024-12-19 23:57] VITALS: BP 138/85
[2024-12-20 04:13] VITALS: BP 135/90
--- NOTE | 2024-12-20 06:03 | NUR ---
SHIFT SUMMARY PT A&OX4, ABLE TO MAKE NEEDS KNOWN, FOLLOWING COMMANDS. BP STABLE. ON TELE, SR W/ 1ST DEGREE AV BLOCK, OCC PVCS, AND ST ELEV AND DEPRESSIONS AT 90 BPM. PT REPORTED BRIEF CP W/ EXERTION THAT RESOLVES AT REST. ON 15L HFNC W/ SPO2 >95%. HEPARIN GTT STARTED PER EMAR. PT USING URINAL AT BEDSIDE. NO OTHER CHANGES, WILL REPORT TO ONCOMING RN.
[2024-12-20 06:45] LABS: Bun/Creatinine Ratio 23.6 (12.0-20.0); Calcium, Blood 8.6 mg/dL (8.5-10.1); Creatinine, Blood 1.06 mg/dL (0.60-1.20); Potassium, Blood 4.3 mmol/L (3.5-5.5)
[2024-12-20] MEDS ORDERED: Dose Adjust by Pharmacy XX STA ×2 (06:56→14:52)
[2024-12-20 07:32] VITALS: BP 169/100
[2024-12-20 07:46] VITALS: BP 151/91
[2024-12-20] MEDS ORDERED: Enoxaparin 40 MG/0.4 ML SYR SC SCH (09:00)
[2024-12-20 11:52] VITALS: BP 138/84
[2024-12-20] MEDS ORDERED: HYDR1TAB94 PO (12:13)
[2024-12-20 13:57] LABS: BASOPHILS ABSOLUTE AUTO 0.01 K/mm3 (0.00-0.23); BASOPHILS PERCENT AUTO 0 % (0-2); EOSINOPHILS PERCENT AUTO 0 % (0-6); Hemoglobin 11.8 g/dL (13.5-17.5); IMMATURE GRAN ABSOLUTE AUTO 0.18 K/mm3 (0.00-0.10); IMMATURE GRAN PERCENT AUTO 1 % (0-1); LYMPHOCYTES ABSOLUTE AUTO 0.33 K/mm3 (0.84-5.20); LYMPHOCYTES PERCENT AUTO 2 % (21-46); MONOCYTES ABSOLUTE AUTO 0.61 K/mm3 (0.16-1.47); MONOCYTES PERCENT AUTO 4 % (4-13); Mean Corpuscular HGB 32.3 pg (26.0-34.0); Mean Corpuscular HGB Conc 32.8 g/dL (31.5-36.5); Mean Corpuscular Volume 99 fL (80-100); Mean Platelet Volume 10.8 fL (9.1-12.4); NEUTROPHILS ABSOLUTE AUTO 13.48 K/mm3 (1.96-9.15); NEUTROPHILS PERCENT AUTO 92 % (41-73); NRBC ABSOLUTE 0.02 K/mm3 (0.00-0.02); NRBC Auto 0.1 /100 WBC (0.0-0.2); Platelet Count 180 K/mm3 (150-400); RDW Coefficient Variation 16.1 % (11.7-14.2); RDW Standard Deviation 56.5 fL (35.1-46.3); Red Blood Cell Count 3.65 M/mm3 (4.30-5.90); White Blood Cell Count 14.61 K/mm3 (4.00-11.30)
[2024-12-20] MEDS ORDERED: Polyethylene Glycol 3350 17 gm PO PRN (14:15)
[2024-12-20] MEDS ORDERED: HYDROcodone 5-APAP 325 TAB PO PRN (14:25)
[2024-12-20] MEDS ORDERED: Tiotropium Bromide 2.5 MCG/ACT MIST INHAL (10 ACT/4 GM) INH SCH (14:30)
[2024-12-20 16:51] VITALS: BP 136/78
--- NOTE | 2024-12-20 18:02 | NUR ---
SHIFT SUMMARY: PT A/O X4, IRRITABLE AT TIMES. HR BETWEEN 90-100s. LAST BP 136/78. PT ON 8 L O2 NC, SATS 94. PT CONTINUING ON HEPARIN PER ORDERS. PT USES URINAL AT BEDSIDE. PT SITTING AT THE EDGE OF THE BED WITH , EATING DINNER. CALL WITHIN REACH.
[2024-12-20] MEDS ORDERED: Melatonin 3 MG Tab PO PRN (18:05)
[2024-12-20 19:28] VITALS: BP 124/87
[2024-12-20] MEDS ORDERED: Atorvastatin 40 MG Tab PO SCH (21:00)
[2024-12-20] MEDS ORDERED: Apixaban 5 MG Tab PO SCH (21:00)
[2024-12-20] MEDS ORDERED: Pregabalin 75 MG Cap PO SCH (21:00)
[2024-12-20] MEDS ORDERED: Docusate Sodium/Senna 1 Tab PO SCH (21:00)
[2024-12-20] MEDS ORDERED: Sacubitril/Valsartan 24 MG-26 MG Tab PO SCH (21:00)
[2024-12-21 00:33] VITALS: BP 128/91
--- NOTE | 2024-12-21 04:19 | NUR ---
SHIFT SUMMARY PT REMAINS A&OX4. VSS ON 6L HIFLOW NC AT THIS TIME. EXPERIENCED SOB AND WEAKNESS AT START OF SHIFT WHEN HOT PATCHER TOOK PT TO THE BATHROOM, THIS NURSE EXPRESSED CONCERNS AND REQUESTED PT USE URINAL AT BEDSIDE THROUGHOUT NIGHT. PT COMPLIANT. EDUCATED PT ON MEDICATIONS AND PE FINDINGS. RT WAS ABLE TO GUIDE PT IN BETTER TECHNIQUES IN USING INHALERS WHEN AT HOME TO PREVENT THRUSH THAT THE PT REPORTS HE GETS D/T USAGE. ON TELE PT HAD A FEW RUNS OF VTACH HOWEVER BP STABLE WITH NO REPORTS OF CP OR PRESSURE. WHILE AWAKE PT WAS ANXIOUS WITH CERTAIN EVENTS THAT OCCURED DURING THE DAY AND WAS FOUND SINUS TACH BUT WHILE AT REST PT NSR IN 80s. NO FURTHER QUESTIONS OR CONCERNS AT THIS TIME. WILL CONTINUE WITH PLAN OF CARE.
[2024-12-21 04:29] LABS: Hematocrit 34.9 % (37.0-53.0); Hemoglobin 11.3 g/dL (13.5-17.5); Mean Corpuscular HGB Conc 32.4 g/dL (31.5-36.5); Mean Corpuscular Volume 99 fL (80-100); Mean Platelet Volume 10.8 fL (9.1-12.4); NRBC ABSOLUTE 0.05 K/mm3 (0.00-0.02); NRBC Auto 0.3 /100 WBC (0.0-0.2); Platelet Count 167 K/mm3 (150-400); RDW Coefficient Variation 16.4 % (11.7-14.2); RDW Standard Deviation 58.2 fL (35.1-46.3); Red Blood Cell Count 3.53 M/mm3 (4.30-5.90)
[2024-12-21 04:47] VITALS: BP 162/100
[2024-12-21 04:48] LABS: Albumin, Blood 2.8 g/dL (3.4-5.0); Anion Gap 7 mmol/L (3-11); Blood Urea Nitrogen 30 mg/dL (8-24); Bun/Creatinine Ratio 29.1 (12.0-20.0); CO2, Blood 28 mmol/L (21-32); Calcium, Blood 8.7 mg/dL (8.5-10.1); Chloride, Blood 109 mmol/L (98-108); Creatinine, Blood 1.03 mg/dL (0.60-1.20); Glomerular Filtration Rate 76 (60-); Glucose, Blood 123 mg/dL (70-99); Phosphorus, Blood 2.9 mg/dL (2.5-4.9); Potassium, Blood 4.1 mmol/L (3.5-5.5); Sodium, Blood 140 mmol/L (136-145)
[2024-12-21] MEDS ORDERED: Omeprazole 20 MG CapCR PO SCH (06:00)
[2024-12-21 07:57] VITALS: BP 170/83
[2024-12-21] MEDS ORDERED: Cholestyramine 4 GM PKT PO SCH (09:00)
[2024-12-21] MEDS ORDERED: Tamsulosin HCl 0.4 MG Cap PO SCH (09:00)
[2024-12-21] MEDS ORDERED: Metoprolol Succinate 50 MG TABCR PO SCH (09:00)
[2024-12-21] MEDS ORDERED: Leflunomide 10 MG TABLET PO SCH (09:00)
[2024-12-21] MEDS ORDERED: Empagliflozin 25 MG TAB PO SCH (09:00)
[2024-12-21] MEDS ORDERED: Cholecalciferol 1000 Unit Tablet (=25MCG) PO SCH (09:00)
[2024-12-21] MEDS ORDERED: Methocarbamol 500 MG Tab PO SCH (09:00)
[2024-12-21] MEDS ORDERED: Furosemide 20 MG Tab PO SCH (09:00)
[2024-12-21] MEDS ORDERED: Leflunomide 20 MG Tab PO SCH (09:00)
[2024-12-21] MEDS ORDERED: Misc. Tablet PO SCH (09:00)
[2024-12-21] MEDS ORDERED: Spironolactone 25 MG Tab PO SCH (09:00)
[2024-12-21] MEDS ORDERED: PredniSONE 20 MG Tab PO SCH (09:00)
[2024-12-21] MEDS ORDERED: Methocarbamol 500 MG Tab PO PRN (09:55)
[2024-12-21 10:13] VITALS: BP 127/85
--- NOTE | 2024-12-21 11:46 | NUR ---
AM SUMMARY: PT A/O X4, ABLE TO EXPRESS NEEDS. PT HAS BEEN COMPLIANT WITH CARE THIS MORNING, BUT ASKED TO BE DISCHARGED TODAY. PT SITTING UP AT EDGE OF BED FOR MEALS, X1 FWW TO BATHROOM. PT CURRENTLY WALKING THE HALLS WITH RT FOR O2 EVAL. PT IS DRESSED, AND USING URINAL INDEP. PT CURRENTLY ON 4L O2 NC, SATS >90. BP WAS ELEVATED THIS MORNING 170/83, MEDICATED PT PER EMAR. PTS BP IS NOW 127/85. PT EXPRESSES NO NEEDS AT THIS TIME.
[2024-12-21 12:20] VITALS: BP 131/78
[2024-12-21] MEDS ORDERED: ELIQUIS5 M2 PO (12:33)
[2024-12-21] MEDS ORDERED: FLUTICASONE-SA1 EAC2 INH (12:33)
[2024-12-21 13:45] VITALS: BP 118/88
--- NOTE | 2024-12-21 14:20 | NUR ---
DISCHARGE SUMMARY: PT REPORTED TO MD THAT HE WANTED TO D/C TODAY. MD PUT IN D/C ORDERS. PT COMPLETED O2 EVAL, HOME ON 5L NC. PT EDUCATED DURING D/C INSTRUCTIONS. PT AMBULATES 1 ASSIST WITH THE FWW TO W/C, FILM LOADER WHEELING PT OUT. TELE AND LINES REMOVED FROM PT. ALL VSS.
== END 2024-12-21 14:30 | disposition home or self-care (01) | DRG 175 ==
LOC: ER 12:39 → PCU 14:44
PROVIDERS: Emergency Medicine; Internal Medicine; Pharmacist; ADMIT Internal Medicine
DX: I26.99 Other pulmonary embolism without acute cor pulmonale (principal); J96.21 Acute and chronic respiratory failure with hypoxia; J96.22 Acute and chronic respiratory failure with hypercapnia; J44.1 Chronic obstructive pulmonary disease with (acute) exacerbation; I13.0 Hypertensive heart and chronic kidney disease with heart failure and stage 1 through stage 4 chronic kidney disease, or unspecified chronic kidney disease; I50.32 Chronic diastolic (congestive) heart failure; Z68.41 Body mass index [BMI] 40.0-44.9, adult; F10.239 Alcohol dependence with withdrawal, unspecified; N18.9 Chronic kidney disease, unspecified; M06.9 Rheumatoid arthritis, unspecified; E78.5 Hyperlipidemia, unspecified; K21.9 Gastro-esophageal reflux disease without esophagitis; F32.A Depression, unspecified; N40.0 Benign prostatic hyperplasia without lower urinary tract symptoms; G62.9 Polyneuropathy, unspecified; D63.1 Anemia in chronic kidney disease; R79.89 Other specified abnormal findings of blood chemistry; G47.33 Obstructive sleep apnea (adult) (pediatric); I44.7 Left bundle-branch block, unspecified; Z95.5 Presence of coronary angioplasty implant and graft; Z98.890 Other specified postprocedural states; Z88.0 Allergy status to penicillin; Z79.82 Long term (current) use of aspirin; Z99.81 Dependence on supplemental oxygen; Z79.51 Long term (current) use of inhaled steroids; Z79.620 Long term (current) use of immunosuppressive biologic; Z79.899 Other long term (current) drug therapy; Z79.2 Long term (current) use of antibiotics; Z79.52 Long term (current) use of systemic steroids; Z87.19 Personal history of other diseases of the digestive system; Z87.891 Personal history of nicotine dependence; Z79.01 Long term (current) use of anticoagulants
CPT/HCPCS: 0202U; 36415; 71045; 71260; 80048; 80053; 80069; 82803; 82947; 83735; 83880; 84484; 85025; 85027; 85379; 85520; 85610; 85730; 93005; 93010; 93970; 94640; 94660; 94664; 94761; 94762; 99285-25; A9270; J0456; J1644; J2919; J7050; J7512; Q9967

== ENCOUNTER 2025-01-02 12:58 | Emergency (ER) | payer OTHER ==
[~2025-01-02] VITALS: Ht 175.3 cm; Wt 108.9 kg
[~2025-01-02 12:58] MED LIST changes: +COLESTID1 G1 PO; +ELIQUIS5 M2 PO; +FLUTICASONE-SA1 EAC2 INH; +HYDR1TAB94 PO; +MISCSOL PO
[2025-01-02 13:26] LABS: BASOPHILS ABSOLUTE AUTO 0.05 K/mm3 (0.00-0.23); BASOPHILS PERCENT AUTO 1 % (0-2); EOSINOPHILS ABSOLUTE AUTO 0.05 K/mm3 (0.00-0.68); EOSINOPHILS PERCENT AUTO 1 % (0-6); Hematocrit 37.7 % (37.0-53.0); Hemoglobin 12.1 g/dL (13.5-17.5); IMMATURE GRAN ABSOLUTE AUTO 0.11 K/mm3 (0.00-0.10); IMMATURE GRAN PERCENT AUTO 1 % (0-1); LYMPHOCYTES ABSOLUTE AUTO 1.53 K/mm3 (0.84-5.20); LYMPHOCYTES PERCENT AUTO 20 % (21-46); MONOCYTES ABSOLUTE AUTO 0.74 K/mm3 (0.16-1.47); MONOCYTES PERCENT AUTO 10 % (4-13); Mean Corpuscular HGB Conc 32.1 g/dL (31.5-36.5); Mean Corpuscular Volume 100 fL (80-100); Mean Platelet Volume 10.3 fL (9.1-12.4); NEUTROPHILS ABSOLUTE AUTO 5.25 K/mm3 (1.96-9.15); NEUTROPHILS PERCENT AUTO 68 % (41-73); Platelet Count 304 K/mm3 (150-400); RDW Coefficient Variation 16.1 % (11.7-14.2); RDW Standard Deviation 58.9 fL (35.1-46.3); Red Blood Cell Count 3.78 M/mm3 (4.30-5.90); White Blood Cell Count 7.73 K/mm3 (4.00-11.30)
[2025-01-02] MEDS ORDERED: METO25ER PO (13:30)
[2025-01-02] MEDS ORDERED: B-1100 M1 PO (13:32)
[2025-01-02] MEDS ORDERED: Vitamin B Comple1 EA PO (13:32)
[2025-01-02] MEDS ORDERED: RINVOQ ER15 MG PO (13:32)
[2025-01-02] MEDS ORDERED: PROBIOTIC1 EA14 PO (13:33)
[2025-01-02] MEDS ORDERED: PREDNISONE5 M1 PO (13:41)
[2025-01-02] MEDS ORDERED: NYSTRIT TOP (13:42)
[2025-01-02] MEDS ORDERED: NYSTATIN100000 U10 MT (13:42)
[2025-01-02] MEDS ORDERED: MELO7.5 PO (13:42)
[2025-01-02] MEDS ORDERED: MAG-OXIDE MAGN200 MG PO (13:43)
[2025-01-02] MEDS ORDERED: ASPI81CH PO (13:44)
[2025-01-02] MEDS ORDERED: LOPE2C PO (13:44)
[2025-01-02] MEDS ORDERED: LACT PO (13:44)
[2025-01-02] MEDS ORDERED: ANORO ELLIPTA1 EACH INH (13:45)
[2025-01-02 13:51] LABS: Albumin, Blood 3.3 g/dL (3.4-5.0); Albumin/Globulin Ratio 1.1 (0.8-1.8); Bilirubin, Total 0.6 mg/dL (0.1-1.0); Bun/Creatinine Ratio 18.4 (12.0-20.0); Calcium, Blood 8.9 mg/dL (8.5-10.1); Creatinine, Blood 1.25 mg/dL (0.60-1.20); Globulin, Blood 2.9 g/dL (2.2-4.0); Potassium, Blood 3.9 mmol/L (3.5-5.5); Total Protein, Blood 6.2 g/dL (6.4-8.2)
[2025-01-02] MEDS ORDERED: Ondansetron HCl 2 MG / ML 2ML Vial IV ONE (15:00)
[2025-01-02] MEDS ORDERED: NS 1,000 ML IV SCH (15:05)
[2025-01-02 16:51] VITALS: BP 138/107
== END 2025-01-02 16:55 | disposition home or self-care (01) ==
LOC: ER 12:58
PROVIDERS: Emergency Medicine
DX: I95.9 Hypotension, unspecified (principal); I48.91 Unspecified atrial fibrillation; J44.9 Chronic obstructive pulmonary disease, unspecified; Z88.0 Allergy status to penicillin; Z79.899 Other long term (current) drug therapy; Z79.2 Long term (current) use of antibiotics; Z79.891 Long term (current) use of opiate analgesic; I50.30 Unspecified diastolic (congestive) heart failure; I12.9 Hypertensive chronic kidney disease with stage 1 through stage 4 chronic kidney disease, or unspecified chronic kidney disease; N18.9 Chronic kidney disease, unspecified; K21.9 Gastro-esophageal reflux disease without esophagitis; Z87.891 Personal history of nicotine dependence
CPT/HCPCS: 80053; 83880; 84484; 85025; 93005; 93010; 96361; 96374; 99285-25; J2405; J7030